=== PATIENT | male | born 1945 | race Caucasian/White ===

== ENCOUNTER 2016-09-22 18:28 | Emergency (ER) | payer MEDICARE, BC ==
[~2016-09-22 18:28] MED LIST: ACIDOPHILU2 PO; APRES25 PO; APRES50 PO; ARANESP60 IV; ARANESP60 SC; ASA5GR PO; ASAB PO; ASCRIPTIN PO; BEN25 PO; BUM2 PO; CALCIUM CARBONATE; CALCIUM MAG ZINC PO; CARDCD120 PO; CAT1 PO; CAT2 PO; CELLCEPT5 PO; CO Q-10100 MG PO; CORDARONE PO; COREG12 PO; COREG3 PO; COREG6 PO; COUMADIN3 MG PO; DUONEB INH; ELIQUIS 5 MG TAB5 MG PO; ENBREL50 MG/M1 SC; HCTZ25B PO; HUMULIN R1 ML SC; HYDROCHLOROT25 MG PO; IMDUR30 PO; IRON325 MG PO; KLONO1 PO; L80 PO; LEVAQUIN750 MG PO; LIPITOR10 PO; LIPITOR20 PO; LIPITOR40 PO; LOTE10 PO; LOTE40 PO; MAGNEBIND300 MG PO; MAGOX4 PO; MARI5 PO; MEDROLPAK4 PO; MELATONIN5 M1 PO; NORCO1 TA1 PO; NXL3 PO; P20 PO; P5 PO; PACERONE100 MG PO; PRIN2.5 PO; PRIN20 PO; PROGRAF5 PO; PROTONIX PO; SYMBICORT 160/41 INH INH; TOPXL25 PO; TYLENOL 8 HR650 MG PO; ULORIC40 MG PO; ULTRAM50 PO; VALTREX1 GM PO; VITC500 PO; Z5 PO; ZETIA PO; ZOVIRAX400 MG PO; [UNRECOGNIZED DRUG - OTHER]
[2016-09-22 19:51] LABS: BASOPHILS 0.2 %; BASOPHILS ABSOLUTE 0.02 10/3/uL (0.0-0.16); EOSINOPHILS 1.1 %; EOSINOPHILS ABSOLUTE 0.12 10/3/uL (0.0-0.53); ER CBC TAT 0 Hrs 03 Mins; HEMATOCRIT 40.9 % (40.0-51.0); HEMOGLOBIN 13.4 g/dL (13.6-17.8); IMMATURE GRANULOCYTES 0.3 %; IMMATURE GRANULOCYTES ABSOLUTE 0.03 10/3/uL (0.0-0.11); LYMPHOCYTES 6.7 %; LYMPHOCYTES ABSOLUTE 0.74 10/3/uL (0.67-4.30); MEAN CORPUSCULAR HEMOGLOB 29.8 pg (26.0-34.0); MONOCYTES 11.3 %; MONOCYTES ABSOLUTE 1.24 10/3/uL (0.21-1.20); NEUTROPHILS 80.4 %; NEUTROPHILS ABSOLUTE 8.85 10/3/uL (2.02-8.40); PLATELET COUNT 243 10/3/uL (150-400); RBC DISTRIBUTION WIDTH 14.8 % (12.0-16.0); RED CELL COUNT 4.49 10/6/uL (4.7-6.1)
[2016-09-22 19:52] LABS: MANUAL DIFF NO %; MEAN CORPUS HGB CONC 32.8 g/dL (32.0-36.0); MEAN CORPUSCULAR VOLUME 91.1 fL (80-100)
[2016-09-22 19:59] LABS: INTERNATIONAL NORMAL RATI 1.4 UNITS (-); PARTIAL THROMBO TIME 26.3 SEC (22.5-37.2)
[2016-09-22 20:01] LABS: PROTIME (NOT ORD) 17.1 SEC (12.0-14.5)
[2016-09-22 20:02] LABS: INFLUENZA A SCREEN NEGATIVE (NEGATIVE); INFLUENZA B SCREEN NEGATIVE (NEGATIVE)
[2016-09-22 20:08] LABS: ALBUMIN 3.5 G/DL (3.5-5.0); CHLORIDE, SERUM 107 MMOL/L (96-112); CO2 (CARBON DIOXIDE) 23 MMOL/L (24-34); CREATININE 1.76 MG/DL (0.70-1.30); GFR AFRICAN AMERICAN 44 ML/MIN (>=60); GFR NON AFRICAN AMERICAN 38 ML/MIN (>=60); POTASSIUM, SERUM 5.7 MMOL/L (3.5-5.3); SGPT(ALT) 23 U/L (5-65); SODIUM, SERUM 140 MMOL/L (135-148); TOTAL PROTEIN 6.8 G/DL (6.0-8.5)
[2016-09-22 20:09] LABS: BUN (BLOOD UREA NITROGEN) 32 MG/DL (6-23); GLUCOSE, SERUM 169 MG/DL (60-99)
[2016-09-22 20:10] LABS: ACETAMINOPHEN LEVEL (TYLENOL) < 2.0 MCG/ML (10.0-20.0); ALCOHOL < 10 MG/DL (0); ALKALINE PHOSPHATASE 99 U/L (45-117); CHEST PAIN PROFILE TAT 0 Hrs 22 Mins; DIRECT BILIRUBIN 0.5 MG/DL (0.0-0.4); SALICYLATE < 1.7 MG/DL (-); SGOT(AST) 17 U/L (5-40); TOTAL BILIRUBIN 1.5 MG/DL (0-1.2); TROPONIN I 0.05 NG/ML (<0.05)
[2016-09-22] MEDS ORDERED: OXYCON10 PO (20:14)
[2016-09-22] MEDS ORDERED: ASAB PO (20:15)
[2016-09-22] MEDS ORDERED: OXYCOD PO (20:15)
[2016-09-22] MEDS ORDERED: LIPITOR10 PO (20:16)
[2016-09-22] MEDS ORDERED: TUMSROLL PO (20:17)
[2016-09-22] MEDS ORDERED: NEUR300 PO ×2 (20:21)
[2016-09-22] MEDS ORDERED: HUMALOG SC (20:22)
[2016-09-22] MEDS ORDERED: VITAMIN D2000 UNIT PO (20:22)
[2016-09-22] MEDS ORDERED: ZESTRIL20 MG PO (20:22)
[2016-09-22] MEDS ORDERED: MAGOX4 PO (20:22)
[2016-09-22] MEDS ORDERED: TOPXL25 PO (20:23)
[2016-09-22] MEDS ORDERED: PROTONIX PO (20:23)
[2016-09-22] MEDS ORDERED: CELLCEPT5 PO (20:23)
[2016-09-22] MEDS ORDERED: CENTRUM PO (20:23)
[2016-09-22] MEDS ORDERED: P5 PO (20:24)
[2016-09-22] MEDS ORDERED: CO Q-10100 MG PO (20:24)
[2016-09-22] MEDS ORDERED: PROGRAF1 PO (20:24)
[2016-09-22] MEDS ORDERED: ZOVIRAX400 MG PO (20:24)
[2016-09-22] MEDS ORDERED: CALTRAT600 PO (20:40)
[2016-09-22] MEDS ORDERED: CLARIT10 PO (20:41)
[2016-09-22 20:49] LABS: PROCALCITONIN 0.06 ng/mL (<0.5)
[2016-09-22 21:03] LABS: ASCORBIC ACID (UR NOT ORDER) NEG (NEG); BILIRUBIN, URINE NEGATIVE (NEG); ER URINALYSIS TAT 0 Hrs 00 Mins; KETONE, URINE NEGATIVE (NEG); LEUKOCYTE ESTERASE(NOT OR NEG (NEG); NITRITE (URINE) NEG (NEG); WBC (NOT ORDERED) (RFLEX) 10 (0-5)
[2016-12-10] MEDS ORDERED: PROTONIX PO (11:28)
[2016-12-10] MEDS ORDERED: DEMA20 PO (11:29)
[2016-12-10] MEDS ORDERED: HYDROCHLOROT25 MG PO (11:29)
[2016-12-10] MEDS ORDERED: TAPAZOLE10 MG PO (11:34)
[2016-12-10] MEDS ORDERED: METANX PO (11:35)
[2016-12-10] MEDS ORDERED: TRESIBA FL100 UNIT/1 IM (12:22)
[2016-12-10] MEDS ORDERED: TESTOST CYP100 MG/ML IM (12:24)
[2016-12-10] MEDS ORDERED: NOVOLOG SC (12:25)
== END 2016-09-22 23:41 | disposition short-term general hospital (02) ==
LOC: ER 18:28
PROVIDERS: Emergency Medicine
DX: G93.40 Encephalopathy, unspecified (principal); E87.5 Hyperkalemia; J18.9 Pneumonia, unspecified organism; I12.9 Hypertensive chronic kidney disease with stage 1 through stage 4 chronic kidney disease, or unspecified chronic kidney disease; N18.9 Chronic kidney disease, unspecified; E11.22 Type 2 diabetes mellitus with diabetic chronic kidney disease; I48.91 Unspecified atrial fibrillation; K21.9 Gastro-esophageal reflux disease without esophagitis; Z95.1 Presence of aortocoronary bypass graft; Z86.19 Personal history of other infectious and parasitic diseases; Z88.8 Allergy status to other drugs, medicaments and biological substances; Z79.82 Long term (current) use of aspirin; Z79.899 Other long term (current) drug therapy; Z79.4 Long term (current) use of insulin
CPT/HCPCS: 70450; 71010; 80048; 80076; 80307; 81001; 82140; 82962; 83605; 83690; 83735; 84145; 84484; 85025; 85610; 85730; 87040; 87804; 93005; 96374; 96375; 99285; A9270-GY; J1956

== ENCOUNTER 2016-09-28 13:00 | Emergency (ER) | payer MEDICARE, BC ==
--- NOTE | ~2016-09-28 | HP ---
History And Physical [facility] [address] [place]. [address] NAME: SANCHEZ ANTONY : 43 STATUS : ADM IN PAT#: [id number] AGE: 70 ADM/REG DATE : 09/28/16 MR#: [id number] REPORT SERV DATE: 09/29/16 DICTATED BY: SANDRA BALDWIN DATE: 09/28/16 REPORT STATUS : Draft TRANSCRIBED BY: MODL DATE: 09/28/16 DATE OF ADMISSION: 09/28/2016 REASON FOR ADMISSION: Encephalopathy gradually progressive over time with failure in workup at [place]. 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 He has actually been fairly progressive since his CABG in 2015. He was unable to identify his son-in-law, then he was telling his 's name and daughter's name, so he was brought to the emergency room for evaluation and treatment. His son-in-law is an emergency room physician at [facility] Dr. Sanchez Pope and he is well known to the Nephrology Service. I discussed his case with Dr. Shaquille Henning. The history is that he was doing well and had an orthopedic injury while out hunting about two years ago. He began taking ibuprofen and was doing fairly well, went to Dr. Brad Aragon his primary care doctor who found his creatinine was slightly elevated. A renal biopsy was done with some postoperative bleeding followed by obstructive uropathy from a clot in the collecting system, followed by atrial fibrillation, followed by discovery of cardiovascular disease, followed by a long complicated CABG with donor vessels from the left wrist and four vessels having been bypassed with a difficult recovery. 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 PAST MEDICAL HISTORY: Renal transplantation with donor from his from failure of the kidneys because of the kappa restriction IgG gammopathy. The present donor kidney has been biopsied showing further infiltration and progression of the disease in the transplanted organ. He has had increasing encephalopathy over the last couple of weeks and suspicion of transplant rejection or progressive loss of kidney due to the infiltration. He has been given Velcade by Dr. Chaparro Fields. Because of his encephalopathy a lumbar puncture was ordered. Consultation has been ordered prior to my request for admission with Neurology, Nephrology, and Oncology. Dr. Henning now recommends consultation with Infectious Disease because of potential for STUDENT ADVISOR infection on the immune suppressed agents. PAST MEDICAL HISTORY: As outlined above. HOME MEDICATIONS: Include the following: Prograf 5 mg p.o. every 12 hours, dexamethasone 40 mg with Velcade once a week, gabapentin 300 mg 2 p.o. three times a day for neuropathic pain, lisinopril 20 mg p.o. daily, loratadine 10 mg p.o. daily, pantoprazole 40 mg p.o. daily, CoQ10 one p.o. daily, aspirin 81 mg p.o. daily, atorvastatin 10 mg p.o. daily, Keflex 1 cap every 12 hours for 7 days, vitamin D3, 1000 units p.o. b.i.d., magnesium oxide 400 mg History And Physical [address] [address] NAME: SANCHEZ ANTONY : 43 STATUS : ADM IN PAT#: [id number] AGE: 70 ADM/REG DATE : 09/28/16 MR#: [id number] REPORT SERV DATE: 09/29/16 DICTATED BY: SANDRA BALDWIN DATE: 09/28/16 REPORT STATUS : Draft TRANSCRIBED BY: TORIN DATE: 09/28/16 once daily, Megace 40 mg/mL 10 mL p.o. once daily, metoprolol 25 mg 1/2 p.o. daily, multivitamin 1 a day, mycophenolate 1 p.o. b.i.d., OxyContin 10 mg p.o. every 12 hours, prednisone 5 mg p.o. daily, and I believe those are the list of his medication. 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 He does not smoke or drink. Lives in [place]. Keshia is the stepmother of his children. FAMILY HISTORY: Unobtainable from him as he cannot recall. Family history from the old chart, Sjogren's syndrome, rheumatoid arthritis. No history of cancer. Positive history of coronary artery disease and diabetes. REVIEW OF SYSTEMS: He has no pain anywhere though his says he usually has neuropathic pain in his hands and legs and feet. He has had no fever, chills, or night sweats. No stiff neck. No nausea, vomiting, or diarrhea. No fits, seizures, or convulsions. No unilateral weakness. No worse than usual with anything. The remainder of the review of systems is negative. PHYSICAL EXAMINATION: VITAL SIGNS: His blood pressure 176/99 down to 140/70 with a heart rate of 80, respiratory rate 18, oxygen saturation 99%, afebrile. HEENT: EOMI. Sclerae clear. Conjunctivae pink. NECK: Marked jugular venous distention. CHEST: Clear. HEART: Regular S1, S2 without murmur, gallop, or click. AICD left upper chest. ABDOMEN: Soft, nontender. Bowel sounds positive. EXTREMITIES: Have no edema. Distal pulses are intact with dorsalis pedis, posterior tibial. NEURO: He is alert, not completely oriented to date, time, and situation but his insulation packer is equal symmetric. Coordination is intact. He is very affable and answers in a courteous congenial way. SKIN: Without rash, ecchymosis, or bruising. Slightly rubor generally. LABORATORY DATA: Lumbar puncture is being performed imminently. The procalcitonin less than 0.05. Sodium 142, potassium 5.3, creatinine 1.83, BUN 42, glucose was 196, albumin 3.4. TSH 0.006, free T4 is 3.[address] scan of the brain showed no acute intracranial abnormality. He does have atrophy and chronic deep white matter abnormality. The ammonia level is slightly elevated at 42. CBC showed hemoglobin of 12.3, hematocrit 37.7, white count 11.5, platelet count 238,000. INR 1.4, lactate 1.1, arterial blood gas 7.46, 30, and 84. Blood cultures that were obtained previously have no growth from the . Chest x-ray portable showed some pleural fluid and atelectasis of the right base but the upper lungs were clear bilaterally. Previous blood sugar was 103. ASSESSMENT: 1. Encephalopathy slowly but chronically progressive. 2. Status post renal transplantation now with a failing transplant from infiltrative disease. History And Physical [address] [place]. [address] NAME: SANCHEZ ANTONY : 43 STATUS : ADM IN PAT#: [id number] AGE: 70 ADM/REG DATE : 09/28/16 MR#: [id number] REPORT SERV DATE: 09/29/16 DICTATED BY: SANDRA BALDWIN DATE: 09/28/16 REPORT STATUS : Draft TRANSCRIBED BY: MODL DATE: 09/28/16 3. 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 Fields. 4. 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 5. History of atrial fibrillation. 6. Automatic implantable cardioverter-defibrillator. 7. History of tricuspid regurgitation. 8. 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 PLAN: Lumbar puncture is being done now. We will get multiple consultations after discussion with Dr. Pope and Dr. Henning. In addition to Nephrology, we will get Neurology and Oncology both of which had been called earlier and we will ask Infectious Disease to see per Dr. Henning's request. The patient is being admitted by the Hospitalist for staging for his especially consultation. JORGE/TORIN Sandra Baldwin M.D. / [id number] CC: Dagmar Carreno M.D. Michael Stipanov, M.D. Mark [place], M.D. Chun C. Huang, MD Mandeep Grewal, M.D.
--- NOTE | ~2016-09-28 | CN ---
Consultation Report [facility] [address] [place]. [address] NAME: SANCHEZ ANTONY : 43 STATUS : DIS IN PAT#: [id number] AGE: 70 ADM/REG DATE : 09/28/16 MR#: [id number] REPORT SERV DATE: 09/30/16 DICTATED BY: MANDI ROMAN DATE: 09/30/16 REPORT STATUS : Draft TRANSCRIBED BY: MODL DATE: 09/30/16 NEUROLOGICAL EVALUATION-CONSULTATION DATE OF CONSULTATION: 09/29/2016 REASON FOR NEUROLOGICAL CONSULTATION: Worsening encephalopathy. HISTORY OF PRESENT ILLNESS: The patient's history was obtained from the patient, the patient's and from other sources which included the patient's chart and additional history is obtained from patient's son-in-law, Dr. Pope the emergency room physician in our [facility] Room. 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 As per patient's , the confusion was noted in the last 3-4 weeks when she noted that the patient was intermittently confused and was making wrong decisions. Past medical history with significant history of coronary artery disease status post CABG followed with complicated recovery. The patient had recurrent atrial fibrillation which was discovered during his surgery for renal biopsy. Also memory difficulty was observed following his CABG which was done in 2015. In the past 2-3 weeks, the patient had difficulty remembering names of his grandchildren. The patient's who is a nurse described that the patient would continue asking her the same questions, and she observed him having difficulty remembering the names of his children. PAST MEDICAL HISTORY: Significant history as mentioned above, coronary artery disease status post CABG, history of recurrent atrial fibrillation, history of renal transplant currently on anti-rejection medications. The patient was diagnosed with rare cancer light chain kappa, IgG gammopathy and lymphoma. The present donor kidney has been biopsied and shows further infiltration progression of the disease in the transplanted organ. The patient had been followed by physicians at [facility] for his condition related to the kidney transplant. HOME MEDICATIONS: The patient's home medications included Prograf 5 mg p.o. q.12 hours, dexamethasone 5 mg p.o. daily, Velcade once a week, gabapentin 300 mg two tablets p.o. 3 times a day for neuropathic pain, lisinopril 20 mg p.o. daily, loratadine 10 mg p.o. daily, pantoprazole 40 mg p.o. daily, aspirin 81 mg p.o. daily, atorvastatin 10 mg daily, Keflex one cap every 12 hours for seven days and vitamin D and magnesium supplement, Megace 40 mg per mL 10 mL once daily, metoprolol 25 mg half a tablet daily, CellCept one tablet p.o. b.i.d., OxyContin 10 mg every 12 hours, prednisone, and additional p.r.n. oxycodone 5 mg/325 mg on p.r.n. basis. SOCIAL HISTORY: There is no history of smoking or alcohol use. 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 The patient's donated her kidney to the patient. Consultation Report [place] [id number] [facility] [place]. [address] NAME: SANCHEZ ANTONY : 43 STATUS : DIS IN PAT#: [id number] AGE: 70 ADM/REG DATE : 09/28/16 MR#: [id number] REPORT SERV DATE: 09/30/16 DICTATED BY: MANDI ROMAN DATE: 09/30/16 REPORT STATUS : Draft TRANSCRIBED BY: TORIN DATE: 09/30/16 FAMILY HISTORY: Significant for rheumatoid arthritis and Sjogren syndrome. No history of cancer. There is history of diabetes and heart disease. REVIEW OF SYSTEMS: The patient had significant neuropathic pain when he started taking medication which was sent to his house by [facility]. At that time, the patient required large doses of narcotic medications. There is no difficulty with vision, chewing, swallowing, with speech. The patient denied fever, chills, nausea, or vomiting. Denied having stiffness in his neck. Denied weakness involving his face or extremities. The patient was hospitalized at [facility] couple of weeks ago where a complete neurological examination was performed by resident. At that time, the patient was not referred for any imaging study or lumbar puncture. PHYSICAL EXAMINATION: VITAL SIGNS: Blood pressure 172/94, pulse was 84, respirations 16, temperature is 97.5. HEAD AND NECK EXAMINATION: Showed him to be normocephalic. There was no evidence of trauma. Auscultation of the head and neck showed no evidence of bruits. EYE EXAM: Sclerae were nonicteric. Conjunctivae were pink. ENT: Unremarkable except for small airway Mallampati class 3-4. Tongue was midline. No crowding, glossitis, or other abnormalities were noted on inspection of the tongue. NECK: Supple. There is no Kernig or Brudzinski. Cervical range of motion was not impaired. There is no JVD, no thyromegaly. No carotid bruits are noted to auscultation. CHEST: Symmetrical. LUNGS: Clear. HEART: Auscultation of heart regular S1, S2. No S3, S4, gallops were noted. ABDOMEN: Soft, nontender. EXTREMITIES: Showed no clubbing or cyanosis. There is no peripheral edema. Peripheral pulses were intact throughout and within normal range. SKIN: Clear. No petechiae, ecchymosis, discoloration of pigmented lesions noted. NEUROLOGICAL EXAMINATION: Mental Status Exam: The patient was alert, oriented to self, place, partially oriented to time, stated it was September 2016, with delay was able to remember the date. His speech was fluent. There was no evidence of aphasia or dysarthria. The patient distant recent memory testing showed him to have global signs of cognitive changes suggestive of very mild dementia. The patient appeared to have good insight into the fact that he was having memory difficulty lately. Cranial nerve examination 2 through 12: Visual lipscomb on confrontation were intact. Funduscopic exam show pallor of the optic discs. No papilledema, hemorrhages, or exudates were noted. Venous pulsation was preserved. Extraocular movements were full. There was no nystagmus, no limitation of upward gaze was present. No facial asymmetry was noted. Hearing was intact bilaterally although decreased slightly. Lower cranial nerves are intact. Tongue was midline. No atrophy or fibrillations were noted. Palate elevated symmetrically. Sternocleidomastoid and trapezius muscles were normal. Cerebellar exam with [id number] was intact. The gait was cautious but within normal range. Sensory exam showed decreased sensation distally to pinprick, light touch, and vibration. Position sense was mildly impaired. The patient did look down towards his feet while ambulating, however, had no difficulty including had no loss of balance while turning. Consultation Report [place] [address] [facility] [address] NAME: SANCHEZ ANTONY : 43 STATUS : DIS IN PAT#: [id number] AGE: 70 ADM/REG DATE : 09/28/16 MR#: [id number] REPORT SERV DATE: 09/30/16 DICTATED BY: MANDI ROMAN DATE: 09/30/16 REPORT STATUS : Draft TRANSCRIBED BY: TORIN DATE: 09/30/16 LABORATORY STUDIES: Sodium 138, potassium 4.4, chloride 106, carbon dioxide 23, BUN 41, creatinine 1.72, glomerular filtration rate 39. Serum glucose 135, calcium 9.1, magnesium 2.2. Total protein 6.4, albumin 3.4, ammonia 42. TSH is 0.006. Free T4 3.30 elevated. ABG is pH 7.46, pCO2 of 38, pO2 of 84, base excess -2.2, bicarbonate 20.5, oxygen saturation 96.2, WBC count on CBC 11.4, hemoglobin 13.1, hematocrit 39.4, MCV 87.6, neutrophils absolute 8.72, lymphocytes absolute 1.14, monocytes absolute 1.33, eosinophil absolute 0.7, procalcitonin at admission was low at 0.05. Lumbar puncture results showed 1 WBC, CSF glucose 98, total protein CSF of 48.4, 0 RBCs. Fluid was colorless, clear, no xanthochromia noted. IMPRESSION AND RECOMMENDATIONS: 1. Progressive ? encephalopathy probably multifactorial, however, in view of patient's underlying history and history of light chain kappa lymphoma, we need to rule out EDI CONSULTANT involvement lymphoma or other pathology including opportunistic infection, autoimmune encephalitis, or paraneoplastic encephalitis. 2. Status post renal transplant with raising BUN and creatinine. Rule out slowly progressing rejection process. 3. History of CABG, atrial fibrillation, mild cognitive decline noted after CABG surgery. Rule out multi-infarct state and mild dementia-vascular dementia. 4. Increased risk of stroke. These include risk factors of atrial fibrillation, hypertension, diabetes mellitus, obstructive sleep apnea, cancer and possible hypercoagulable state. 5. Obstructive sleep apnea. Now, the patient is on narcotic medications to control his neuropathic pain. Unfortunately, narcotics can add to the patient's apnea by producing central apnea. CPAP may not be effective. The patient may need actually to have BiPAP and be titrated for BiPAP of Servo ventilation if he has significant central apnea. 6. Disturbed sleep secondary to frequent arousals from untreated obstructive sleep apnea and perhaps additional factor of hyperthyroidism-overactive thyroid contributes to disturbed sleep. The patient is with chronically disturbed sleep, has increase of cognitive problems and memory problems. Hypersomnolence during the day. I recommend adding autoimmune encephalitis panel and protein electrophoresis to CSF. The lumbar puncture was done last night, was negative for infection, however, the protein was slightly higher than normal. 7. I recommend to obtain MRI of the brain with no contrast secondary to renal transplant. Telemetry monitoring for recurrent atrial fibrillation. Recommend to gradually decrease pain medications OxyContin etc. and decrease Neurontin, use it only at bedtime, and for severe pain. Tests for autoimmune thyroiditis. At this time, TSH is low and T4 elevated. Start Exelon patch and Namenda if all above addressed, and no cause is found. Follow with all providers and also recommend to follow up with outpatient neurology. Thank you for allowing me to participate in this patient's care. Consultation Report [place] [address] [place]. [address] NAME: SANCHEZ ANTONY : 43 STATUS : DIS IN PAT#: [id number] AGE: 70 ADM/REG DATE : 09/28/16 MR#: [id number] REPORT SERV DATE: 09/30/16 DICTATED BY: MANDI ROMAN DATE: 09/30/16 REPORT STATUS : Draft TRANSCRIBED BY: TORIN DATE: 09/30/16 ANGIE/TORIN Mandi Roman MD / [id number] CC: MD Manpreet Curiel M.D.
--- NOTE | ~2016-09-28 | DS ---
Discharge Summary [facility] [address] [place]. 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 He is status post kidney transplant, also hypertension, who was brought to the emergency room by his with a complaint of gradually progressive encephalopathy. For further details, please refer to the excellent H and P dictated by Dr. Chet Duenas on 09/29/2016. Upon presentation to the hospital, the patient was admitted under Hospitalist Service. The patient is well known to the Nephrology Service with Dr. Henning being his media theorist and author of. At the time of presentation, the patient also has a history of kappa light chain lymphoma, so thought was that his progressive encephalopathy might be secondary to a complication of that disease versus an infectious etiology in the setting of recent kidney transplant. The patient was admitted to the hospital. Nephrology was consulted. Infectious Disease was consulted and also Neurology was consulted. For further details, please refer to note dictated by those services. During his hospitalization to evaluate MRI of the brain and MRA of the neck were ordered as well as infectious workup was also performed by Infectious Disease. His infectious workup came back negative, prompting infectious disease to sign off the case. His MRI also came back with no acute abnormality noted, also prompting Neurology to sign off the case. The patient has remained stable. However, his mentation has been waxing and waning concerning for a delirium type picture. Also, at the time of presentation, the patient was on high dose of pain medication, so the thought process it will be medication related. His long-acting opioid medication was discontinued, and the patient was placed on p.r.n. pain medications. Over his hospital course, his mentation has slightly improved. reports that he is still fluctuating in and out. Given completion of workup, the patient has been cleared by all three services; Nephrology, Neurology, and the Infectious Disease, for discharge. The patient is scheduled to see his primary care physician this coming Saturday. He is also scheduled for a followup visit with his Transplant Nephrology at [facility] on the 10/10/2016. Give completion of workup and given that the patient has a close followup scheduled, the patient will be discharged home today. Plan has been discussed with the patient and family who voiced understanding and are agreeable with this plan. DISCHARGE DIAGNOSES: 1. Altered mental status. 2. ESRD, status post kidney transplant. 3. Lymphoma of kappa light chain. 4. Rapidly progressive glomerulonephritis. 5. Hypertension. DISCHARGE MEDICATIONS: 1. Acyclovir 400 mg p.o. daily. 2. Aspirin 81 mg p.o. daily. 3. Atorvastatin 10 mg p.o. at bedtime. Discharge Summary [address] [address] NAME: SANCHEZ ANTONY : 43 STATUS : DIS IN PAT#: [id number] AGE: 70 ADM/REG DATE : 09/28/16 MR#: [id number] REPORT SERV DATE: 10/01/16 DICTATED BY: MARGARET FOSTER DATE: 09/30/16 REPORT STATUS : Draft TRANSCRIBED BY: TORIN DATE: 09/30/16 4. Calcium carbonate 500 mg p.o. daily. 5. Keflex 500 mg p.o. q.12 hours for seven days. 6. Vitamin D 1000 units p.o. twice a day. 7. Magnesium oxide 400 mg p.o. daily. 8. Vol-Tab multivitamin. 9. CellCept 500 mg p.o. twice a day. 10.Megace 10 mg p.o. daily. 11.Metoprolol 50 mg p.o. b.i.d. 12.Tacrolimus 7 mg p.o. twice a day. 13.Prednisone 5 mg p.o. daily. 14.Furosemide 40 mg p.o. daily. IMAGIN. Brain CT without contrast. Impression: No acute intracranial abnormality noted. 2. Atrophy chronic microvascular white matter ischemic changes. 3. MRI/MRA head and neck without contrast. Impression: No acute abnormality seen on MRI brain scan. No abnormalities seen on MRA scans of the neck. No abnormality seen on MRA scans of the head. DISPOSITION: The patient will be discharged to home under the care of his . ACTIVITY: As tolerated. DIET: Regular diet. Greater than 30 minutes was spent providing counseling, medication reconciliation, medication review, providing counseling, dictation of note, and coordinating discharge. ERNESTO/TORIN Margaret Foster MD / [id number] CC: MD Manpreet Curiel M.D.
[~2016-09-28 13:00] MED LIST changes: +CALTRAT600 PO; +CENTRUM PO; +CLARIT10 PO; +HUMALOG SC; +NEUR300 PO; +OXYCOD PO; +OXYCON10 PO; +PROGRAF1 PO; +TUMSROLL PO; +VITAMIN D2000 UNIT PO; +ZESTRIL20 MG PO
[2016-09-28 13:44] LABS: BE (BASE EXCESS) -2.2 MEQ/L (0 +/- 2.5); CARBOXYHEMOGLOBIN 1.3 % (0-3); HCO3 (ACTUAL BICARBONATE) 20.5 MEQ/L (23-27); INSTRUMENT SERIAL # 8087; METHEMOGLOBIN 0.2 % (0-3); O2 CONTENT 17.4 VOL% (18-24); PCO2 (CO2 TENSION) 30 MMHG (35-45); PO2 (O2 TENSION) 84 MMHG (79-93); SAMPLE Arterial; pH 7.46 (7.37-7.43)
[2016-09-28] MEDS ORDERED: PCET PO (14:13)
[2016-09-28] MEDS ORDERED: ASAB PO (14:14)
[2016-09-28] MEDS ORDERED: ZOVIRAX400 MG PO (14:14)
[2016-09-28] MEDS ORDERED: LIPITOR10 PO (14:14)
[2016-09-28] MEDS ORDERED: CALCIUM OTC PO (14:19)
[2016-09-28] MEDS ORDERED: VITAMIN D2000 UNIT PO (14:20)
[2016-09-28] MEDS ORDERED: K500 PO (14:20)
[2016-09-28] MEDS ORDERED: L40 PO (14:20)
[2016-09-28] MEDS ORDERED: MAGOX4 PO (14:21)
[2016-09-28] MEDS ORDERED: MEGACEUDL PO (14:21)
[2016-09-28] MEDS ORDERED: LOP25 PO (14:22)
[2016-09-28] MEDS ORDERED: MULTIVITAMI1 PO ×2 (14:22→14:28)
[2016-09-28] MEDS ORDERED: CELLCEPT5 PO (14:22)
[2016-09-28] MEDS ORDERED: OXYCON10 PO (14:23)
[2016-09-28] MEDS ORDERED: P5 PO (14:23)
[2016-09-28] MEDS ORDERED: PROGRAF1 PO (14:23)
[2016-09-28 14:25] LABS: BASOPHILS 0.3 %; BASOPHILS ABSOLUTE 0.04 10/3/uL (0.0-0.16); EOSINOPHILS 0.2 %; EOSINOPHILS ABSOLUTE 0.02 10/3/uL (0.0-0.53); HEMATOCRIT 37.7 % (40.0-51.0); HEMOGLOBIN 12.3 g/dL (13.6-17.8); IMMATURE GRANULOCYTES 0.4 %; IMMATURE GRANULOCYTES ABSOLUTE 0.05 10/3/uL (0.0-0.11); LYMPHOCYTES 7.6 %; LYMPHOCYTES ABSOLUTE 0.87 10/3/uL (0.67-4.30); MEAN CORPUS HGB CONC 32.6 g/dL (32.0-36.0); MEAN CORPUSCULAR HEMOGLOB 28.7 pg (26.0-34.0); MEAN PLATELET VOLUME 12.4 fL (9.2-13.0); MONOCYTES ABSOLUTE 0.92 10/3/uL (0.21-1.20); NEUTROPHILS 83.5 %; NEUTROPHILS ABSOLUTE 9.56 10/3/uL (2.02-8.40); PLATELET COUNT 238 10/3/uL (150-400); RED CELL COUNT 4.29 10/6/uL (4.7-6.1); WHITE BLOOD CELLS 11.5 10/3/uL (4.5-10.5)
[2016-09-28 14:26] LABS: MANUAL DIFF NO %; MEAN CORPUSCULAR VOLUME 87.9 fL (80-100)
[2016-09-28 14:35] LABS: INTERNATIONAL NORMAL RATI 1.4 UNITS (-); LACTATE 1.1 MMOL/L (0.3-2.4); PARTIAL THROMBO TIME 25.4 SEC (22.5-37.2); PROTIME (NOT ORD) 17.2 SEC (12.0-14.5)
[2016-09-28 14:47] LABS: A/G RATIO 1.1 (0.7-1.9); ALBUMIN 3.4 G/DL (3.5-5.0); ALKALINE PHOSPHATASE 89 U/L (45-117); CALCIUM, SERUM 9.2 MG/DL (8.5-10.4); CHLORIDE, SERUM 109 MMOL/L (96-112); CO2 (CARBON DIOXIDE) 22 MMOL/L (24-34); CREATININE 1.83 MG/DL (0.70-1.30); GFR AFRICAN AMERICAN 42 ML/MIN (>=60); GFR NON AFRICAN AMERICAN 36 ML/MIN (>=60); GLUCOSE, SERUM 196 MG/DL (60-99); POTASSIUM, SERUM 5.3 MMOL/L (3.5-5.3); SGOT(AST) 23 U/L (5-40); SGPT(ALT) 28 U/L (5-65); SODIUM, SERUM 142 MMOL/L (135-148); T3 UPTAKE 43 % (30-45); TOTAL PROTEIN 6.4 G/DL (6.0-8.5); ULTRASENSITIVE TSH 0.006 MCIU/ML (0.358-3.740)
[2016-09-28 14:52] LABS: BUN (BLOOD UREA NITROGEN) 42 MG/DL (6-23)
[2016-09-28 15:20] LABS: PROCALCITONIN <0.05 ng/mL (<0.5)
[2016-09-28 17:11] LABS: GLUCOSE CSF 98 MG/DL (45-70); TOTAL PROTEIN, CSF 48.4 MG/DL (15-45)
[2016-09-28 17:45] LABS: CSF APPEARANCE (NOT ORD) CLEAR (CLEAR); CSF BASO 0 % (NO REF RANGE); CSF COLOR (NOT ORD) COLORLESS (COLORLESS); CSF EOS 0 % (0-1); CSF LYMPH (NOT ORD) 47 % (28-96); CSF MONO 53 % (16-56); CSF RBC (NOT ORD) 0 MM3 (NO REFERENCE); CSF SEGS (NOT ORD) 0 % (0-7); CSF WBC (NOT ORD) 2 /uL (0-10); CSF XANTHROCHROMIA NEG (NEG)
[2016-09-28 17:49] LABS: CSF APPEARANCE (NOT ORD) CLEAR (CLEAR); CSF BASO 0 % (NO REF RANGE); CSF COLOR (NOT ORD) COLORLESS (COLORLESS); CSF EOS 0 % (0-1); CSF LYMPH (NOT ORD) 38 % (28-96); CSF MONO 63 % (16-56); CSF RBC (NOT ORD) 0 MM3 (NO REFERENCE); CSF SEGS (NOT ORD) 0 % (0-7); CSF WBC (NOT ORD) 1 /uL (0-10); CSF XANTHROCHROMIA NEG (NEG)
[2016-09-28 18:08] LABS: WBC (NOT ORDERED) (RFLEX) 0 (0-5)
[2016-09-28 18:22] LABS: ASCORBIC ACID (UR NOT ORDER) NEG (NEG); BILIRUBIN, URINE NEGATIVE (NEG); ER URINALYSIS TAT 0 Hrs 16 Mins; KETONE, URINE NEGATIVE (NEG); LEUKOCYTE ESTERASE(NOT OR NEG (NEG); NITRITE (URINE) NEG (NEG)
[2016-09-29 09:07] LABS: BASOPHILS 0.2 %; BASOPHILS ABSOLUTE 0.02 10/3/uL (0.0-0.16); EOSINOPHILS 0.6 %; EOSINOPHILS ABSOLUTE 0.07 10/3/uL (0.0-0.53); HEMATOCRIT 39.4 % (40.0-51.0); HEMOGLOBIN 13.1 g/dL (13.6-17.8); IMMATURE GRANULOCYTES 0.6 %; IMMATURE GRANULOCYTES ABSOLUTE 0.07 10/3/uL (0.0-0.11); LYMPHOCYTES ABSOLUTE 1.14 10/3/uL (0.67-4.30); MEAN CORPUS HGB CONC 33.2 g/dL (32.0-36.0); MEAN CORPUSCULAR HEMOGLOB 29.1 pg (26.0-34.0); MEAN CORPUSCULAR VOLUME 87.6 fL (80-100); MEAN PLATELET VOLUME 12.2 fL (9.2-13.0); MONOCYTES 11.7 %; MONOCYTES ABSOLUTE 1.33 10/3/uL (0.21-1.20); NEUTROPHILS 76.9 %; NEUTROPHILS ABSOLUTE 8.72 10/3/uL (2.02-8.40); PLATELET COUNT 250 10/3/uL (150-400); RBC DISTRIBUTION WIDTH 14.6 % (12.0-16.0); WHITE BLOOD CELLS 11.4 10/3/uL (4.5-10.5)
[2016-09-29 09:08] LABS: MANUAL DIFF NO %
[2016-09-29 09:24] LABS: ALBUMIN 3.4 G/DL (3.5-5.0); BUN (BLOOD UREA NITROGEN) 41 MG/DL (6-23); CALCIUM, SERUM 9.1 MG/DL (8.5-10.4); CHLORIDE, SERUM 106 MMOL/L (96-112); CO2 (CARBON DIOXIDE) 23 MMOL/L (24-34); CREATININE 1.72 MG/DL (0.70-1.30); GFR AFRICAN AMERICAN 45 ML/MIN (>=60); GFR NON AFRICAN AMERICAN 39 ML/MIN (>=60); POTASSIUM, SERUM 4.4 MMOL/L (3.5-5.3); SODIUM, SERUM 138 MMOL/L (135-148)
[2016-09-29 09:25] LABS: GLUCOSE, SERUM 135 MG/DL (60-99); PHOSPHORUS, SERUM 3.5 MG/DL (2.5-4.5)
[2016-09-30 05:21] LABS: BASOPHILS 0.2 %; BASOPHILS ABSOLUTE 0.02 10/3/uL (0.0-0.16); EOSINOPHILS 0.3 %; EOSINOPHILS ABSOLUTE 0.04 10/3/uL (0.0-0.53); HEMATOCRIT 38.2 % (40.0-51.0); HEMOGLOBIN 12.7 g/dL (13.6-17.8); IMMATURE GRANULOCYTES 0.6 %; IMMATURE GRANULOCYTES ABSOLUTE 0.07 10/3/uL (0.0-0.11); LYMPHOCYTES 9.5 %; LYMPHOCYTES ABSOLUTE 1.17 10/3/uL (0.67-4.30); MEAN CORPUS HGB CONC 33.2 g/dL (32.0-36.0); MEAN CORPUSCULAR HEMOGLOB 28.8 pg (26.0-34.0); MEAN CORPUSCULAR VOLUME 86.6 fL (80-100); MONOCYTES 10.6 %; MONOCYTES ABSOLUTE 1.31 10/3/uL (0.21-1.20); NEUTROPHILS 78.8 %; NEUTROPHILS ABSOLUTE 9.75 10/3/uL (2.02-8.40); PLATELET COUNT 233 10/3/uL (150-400); RBC DISTRIBUTION WIDTH 14.7 % (12.0-16.0); RED CELL COUNT 4.41 10/6/uL (4.7-6.1); WHITE BLOOD CELLS 12.4 10/3/uL (4.5-10.5)
[2016-09-30 05:24] LABS: MANUAL DIFF NO %
[2016-09-30 05:30] LABS: INTERNATIONAL NORMAL RATI 1.4 UNITS (-); PROTIME (NOT ORD) 16.9 SEC (12.0-14.5)
[2016-09-30 05:41] LABS: A/G RATIO 1.3 (0.7-1.9); ALBUMIN 3.4 G/DL (3.5-5.0); ALKALINE PHOSPHATASE 90 U/L (45-117); BUN (BLOOD UREA NITROGEN) 39 MG/DL (6-23); CALCIUM, SERUM 8.9 MG/DL (8.5-10.4); CHLORIDE, SERUM 110 MMOL/L (96-112); CO2 (CARBON DIOXIDE) 23 MMOL/L (24-34); CREATININE 1.76 MG/DL (0.70-1.30); DIRECT BILIRUBIN 0.4 MG/DL (0.0-0.4); GFR AFRICAN AMERICAN 44 ML/MIN (>=60); GFR NON AFRICAN AMERICAN 38 ML/MIN (>=60); GLOBULIN 2.7 G/DL (2.5-4.1); GLUCOSE, SERUM 151 MG/DL (60-99); INDIRECT BILIRUBIN(NOT ORDER) 0.6 MG/DL (0.1-0.9); PHOSPHORUS, SERUM 3.6 MG/DL (2.5-4.5); POTASSIUM, SERUM 4.7 MMOL/L (3.5-5.3); SGOT(AST) 19 U/L (5-40); SGPT(ALT) 24 U/L (5-65); SODIUM, SERUM 141 MMOL/L (135-148); TOTAL PROTEIN 6.1 G/DL (6.0-8.5)
[2016-09-30 06:39] LABS: ASCORBIC ACID (UR NOT ORDER) NEG (NEG); BILIRUBIN, URINE NEGATIVE (NEG); KETONE, URINE NEGATIVE (NEG); LEUKOCYTE ESTERASE(NOT OR NEG (NEG); WBC (NOT ORDERED) (RFLEX) 5 (0-5)
[2016-09-30] MEDS ORDERED: ENDOCET1 TA3 PO (16:13)
[2016-09-30] MEDS ORDERED: PCET PO (16:20)
[2016-10-01 14:27] LABS: HSV DNA TYPE 1 Not Detected (NOTDET); HSV DNA TYPE 2 Not Detected (NOTDET)
[2016-10-02 16:49] LABS: VDRL, CSF Non Reactive (NR)
[2016-10-03 19:42] LABS: ALBUMIN 32.7 mg/dL (8.4-34.2); ALPHA 1 2.8 mg/dL (0.0-3.1); ALPHA 2 3.7 mg/dL (0.0-5.4); BETA 4.9 mg/dL (0.0-8.1); GAMMA 2.9 mg/dL (0.0-5.4); PREALBUMIN 1.1 mg/dL (0.0-3.1); PROTEIN, CSF 48.1 mg/dL (15.0-45.0)
[2016-10-04 02:09] LABS: M.TB COMP PCR NON RESP NOT DETECTED (NOTDET)
[2016-12-10] MEDS ORDERED: PROTONIX PO (11:28)
[2016-12-10] MEDS ORDERED: HYDROCHLOROT25 MG PO (11:29)
[2016-12-10] MEDS ORDERED: DEMA20 PO (11:29)
[2016-12-10] MEDS ORDERED: TAPAZOLE10 MG PO (11:34)
[2016-12-10] MEDS ORDERED: METANX PO (11:35)
[2016-12-10] MEDS ORDERED: TRESIBA FL100 UNIT/1 IM (12:22)
[2016-12-10] MEDS ORDERED: TESTOST CYP100 MG/ML IM (12:24)
[2016-12-10] MEDS ORDERED: NOVOLOG SC (12:25)
== END 2016-09-30 17:51 | disposition home or self-care (01) ==
LOC: ER 13:00
PROVIDERS: Hospitalist
DX: G93.40 Encephalopathy, unspecified (principal); E05.90 Thyrotoxicosis, unspecified without thyrotoxic crisis or storm; I12.9 Hypertensive chronic kidney disease with stage 1 through stage 4 chronic kidney disease, or unspecified chronic kidney disease; N18.9 Chronic kidney disease, unspecified; I25.2 Old myocardial infarction; Z95.1 Presence of aortocoronary bypass graft; Z88.8 Allergy status to other drugs, medicaments and biological substances; Z79.82 Long term (current) use of aspirin; Z79.899 Other long term (current) drug therapy
CPT/HCPCS: 36600; 62270; 70450; 70544; 70547; 70551; 77003; 80053; 80069; 81001; 82140; 82248; 82805; 82945; 82962; 83605; 83735; 84145; 84157; 84166; 84439; 84443; 84479; 84999; 85025; 85610; 85730; 86592; 87015; 87040; 87070; 87102; 87116; 87205; 87210; 87327; 87529; 87529-59; 87556; 88112; 89051; 93005; 99285; A9270-GY; J0360; J7507

== ENCOUNTER 2016-10-08 13:02 | Inpatient (IN) | payer MEDICARE, BC ==
--- NOTE | ~2016-10-08 | CN ---
Consultation Report [facility] [address] [place]. [address] NAME: SANCHEZ ANTONY : 43 STATUS : ADM IN PAT#: [id number] AGE: 70 ADM/REG DATE : 10/08/16 MR#: [id number] REPORT SERV DATE: 10/09/16 DICTATED BY: MATTHEW THOMPSON DATE: 10/09/16 REPORT STATUS : Draft TRANSCRIBED BY: MODL DATE: 10/09/16 NEPHROLOGY CONSULTATION DATE OF CONSULTATION: 10/09/2016 INDICATION FOR CONSULTATION: Acute on chronic kidney disease, renal transplant. 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 He has a complicated medical history initially dating back to 2013 with a difficult four-vessel CABG and subsequent need for dialysis postoperatively with recovery of renal function. 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 He progressed onto needing hemodialysis despite chemotherapy intervention. In November of 2015, he received a non-related living donor renal transplant from his . The donor kidney has subsequently been biopsied and found to have recurrent infiltrative disease with kappa light-chain gammopathy. Currently, he was found to have a large right pleural effusion on chest x-ray while in the emergency room. He was noted to have a creatinine of 1.83 on 09/28/2016, which progressed to 2.18 on 10/08/2016. His present creatinine is 2.11 with a potassium of 5.7. He is on chronic immunosuppressants with CellCept, Prograf, and prednisone for his renal transplant. He was taking Lasix on a p.r.n. basis. The patient has been on acyclovir, but no other nephrotoxic agents. He has also been monitored closely for progressive encephalopathy and been seen by Neurology. There was concern about dementia; prior screens have demonstrated no etiology. There is also discussion about having the patient evaluated at [facility] where he received his transplant. PAST MEDICAL HISTORY: 1. 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 2. Recent progressive encephalopathy. 3. History of psoriasis treated with Humira. 4. Chronic systolic congestive heart failure, ejection fraction of 45% in July 2016. 5. Coronary artery disease, status post four-vessel CABG in 2013. 6. History of paroxysmal atrial fibrillation, nonsustained ventricular tachycardia, status post maze and AICD. 7. Obstructive sleep apnea, possible central and obstructive component. 8. [place] light-chain gammopathy followed by Oncology. 9. Hypertension. 10.Hyperthyroidism. 11.History of dermatitis. 12.History of diabetes mellitus, now off insulin. 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 . No use of alcohol, tobacco products, or Consultation Report [address] [place]. [address] NAME: SANCHEZ ANTONY : 43 STATUS : ADM IN [facility]#: [id number] AGE: 70 ADM/REG DATE : 10/08/16 MR#: [id number] REPORT SERV DATE: 10/09/16 DICTATED BY: MATTHEW THOMPSON DATE: 10/09/16 REPORT STATUS : Draft TRANSCRIBED BY: TORIN DATE: 10/09/16 illicit drugs. FAMILY HISTORY: Mother in her 90s of dementia. Father had heart attack and ankylosing spondylitis. Siblings with obesity, diabetes, sleep apnea per chart. REVIEW OF SYSTEMS: Presently, the patient is too confused to obtain system review. Information obtained from daughter and chart. ALLERGIES: CALCIUM CHANNEL BLOCKERS, AMIODARONE, DILAUDID. HOME MEDICATIONS: Acyclovir, aspirin, Lipitor, vitamin D, Lasix, magnesium, Megace, melatonin, metoprolol, multivitamin, CellCept, Percocet, prednisone, Prograf, Halcion, coenzyme Q10. PHYSICAL EXAMINATION: GENERAL: Pleasant male, speech is somewhat unintelligible. VITAL SIGNS: Blood pressure 150/93, temperature 97.1, pulse 85, respiratory rate 20. HEENT: Eyes, no scleral icterus. Pupils equal and reactive to light. Extraocular movement intact. Nares patent. No discharge. Throat, no injection. Mucous membranes moist. NECK: No thyromegaly, masses, bruits. CHEST/LUNGS: Decreased breath sounds right with some crackles most posterior and laterally. CARDIAC: Irregular rhythm 1/6 systolic ejection murmur. No gallop. No rub. ABDOMEN: Supple. Normoactive bowel sounds. No right lower quadrant allograft tenderness from transplant. Questionable ascites. /RECTAL: Not performed. EXTREMITIES: No edema. No calf tenderness. DERMIS: No identifiable rash. No skin lesions. NEUROLOGIC: The patient smiles. Speech is unintelligible. No overt lateralizing weakness. IMPRESSION: 1. Hyperkalemia, likely secondary to progressive kidney disease, possible complicated further by calcineurin inhibitor. 2. Acute on chronic kidney disease, likely progression of underlying disease, possible prerenal state, possible calcineurin toxicity. 3. Non-related living renal donor transplant with recurrence of kappa light-chain infiltrated gammopathy transplant at [facility] in November 2015. 4. Progressive encephalopathy. 5. Right pleural effusion. 6. Psoriasis. 7. Chronic systolic congestive heart failure with ejection fraction of 45% in July 2016. 8. Coronary artery disease with four-vessel CABG in 2013. 9. History of paroxysmal atrial fibrillation, status post maze and subsequent AICD with nonsustained ventricular tachycardia. Consultation Report [place] [address] [place]. [address] NAME: SANCHEZ ANTONY : 43 STATUS : ADM IN [facility]#: [id number] AGE: 70 ADM/REG DATE : 10/08/16 MR#: [id number] REPORT SERV DATE: 10/09/16 DICTATED BY: MATTHEW THOMPSON DATE: 10/09/16 REPORT STATUS : Draft TRANSCRIBED BY: TORIN DATE: 10/09/16 10.Obstructive sleep apnea with possible central and obstructive components. 11.[place] light chain gammopathy. 12.Surgeries including cholecystectomy, AV fistula, appendectomy, right shoulder surgery, resection of melanoma, resection of basal cell carcinoma. PLAN: 1. Lab. 2. P.o. bicarb. 3. Trial of diuretics. 4. Potassium restricted diet. 5. Possible Florinef. We will avoid Kayexalate due to the possibility of inducing ischemic colitis in renal transplant patients. CG/MODL Matthew Thompson M.D. / [id number] CC: Dagmar Damon M.D.
--- NOTE | ~2016-10-08 | IDS ---
Interim Discharge Summary [facility] [address] [place]. [address] NAME: SANCHEZ ANTONY : 43 STATUS : ADM IN PAT#: [id number] AGE: 70 ADM/REG DATE : 10/08/16 MR#: [id number] REPORT SERV DATE: 10/15/16 DICTATED BY: ENMA MONTGOMERY DATE: 10/15/16 REPORT STATUS : Draft TRANSCRIBED BY: MODL DATE: 10/15/16 ADMISSION DATE: 10/08/2016 DISCHARGE DATE: PRINCIPAL DIAGNOSIS: Acute respiratory failure due to acute on chronic systolic congestive heart failure and pleural effusions. SECONDARY DIAGNOSES: Encephalopathy due to Prograf toxicity; sleep apnea; immune compromise with kidney transplant, status post recurrent acute kidney injury; history of lymphoma; history nonsustained ventricular tachyarrhythmia; steroid-induced diabetes. HISTORY OF PRESENT ILLNESS: Please see Dr. Murray's dictation on 10/08. HOSPITAL COURSE: The patient was admitted with acute shortness of breath in the setting of recent treatment for kappa light chain gammopathy, which is being treated as if it were a lymphoma with Velcade. He starting also having an acute kidney injury and acute hypoxemia with a large pleural effusion. He underwent a thoracentesis. Meanwhile, his mental status which had been worrisome before continued to deteriorate. There was concern that the chemotherapy had interacted with his Prograf and resulted in neuro toxicity. He was seen by Oncology, Renal, and Neurology regarding this issue. The patient had Prograf levels that tend to be sent, however, they would not do things here, and ultimately, it was not sent correctly. He did, however, have a thoracentesis and optimization of his CHF management with improvement in his respirations. A second thoracentesis was done on 10/15 of another liter. The pathology fortunately was negative and the fluid was found to be a transudate. The patient was actually doing quite satisfactorily by 10/15 with improved renal function. Sugars only modestly elevated on prednisone. Blood pressure and other issues were satisfactory and was hoping that he would be able to be released in the next few days. AIXA/TORIN Enma Montgomery M.D. / [id number] CC: Dagmar Sharif M.D. Roza K. Adamczyk, MD Gregory Keith Bruce, M.D. Edward Arrowsmith, M.D. Carlos Baleeiro, M.D. Claude Galphin, M.D.
--- NOTE | ~2016-10-08 | HP ---
History And Physical [place] [address] [place]. [address] NAME: SANCHEZ ANTONY : 43 STATUS : ADM IN PAT#: [id number] AGE: 70 ADM/REG DATE : 10/08/16 MR#: [id number] REPORT SERV DATE: 10/08/16 DICTATED BY: ADIA MURRAY DATE: 10/08/16 REPORT STATUS : Draft TRANSCRIBED BY: MODL DATE: 10/08/16 DATE OF ADMISSION: 10/08/2016 IDENTIFYING DATA: A 70-year-old white male whose PCP is Dr. Manpreet Aragon, [employer] consultant locally is Dr. Henning. He also goes to [place] for their Nephrology [facility]. Medical oncologist locally is Dr. Fields. Clip Baker is Dr. Qamar Vásquez. Quality Assurance Supervisor is Dr. Barr. CHIEF COMPLAINT: Shortness of breath. HISTORY OF PRESENT ILLNESS: This history of present illness is obtained by talking with the patient and mostly with his as well as with the ER physician as well as reviewing [employer] and [employer]. The patient has an extensive medical history. He had a coronary artery bypass in 2013 and according to the was mentally just a slight bit slower after that but really not much. Then about five to eight weeks ago after he started on Velcade and another medication for his kappa light chain gammopathy, the noticed that he had multiple changes, acute peripheral neuropathy in hands and feet for which he was tried on gabapentin, OxyContin, and oxycodone. This caused changes with confusion and decreased level of consciousness. Eventually, he was taken off gabapentin and he is not on OxyContin. He has also been having intermittent encephalopathy where he will have difficulty recalling simple words. He will forget his own name. He will forget his 's name. Sometimes, he will do very bizarre behaviors where he will take all of his clothes off for no good reason and other times he is completely lucid, sometimes he also not say much at all. He was here from 09/28/2016 through 09/30/2016, and during that admission was evaluated by neurologist, Dr. Roman and underwent MRI of the brain which was normal, so was MRA of the brain and neck. The patient also had spinal fluid and had VDRL that was nonreactive, HSV type 1 and 2, that were not detected, as well as TB testing on the spinal fluid that was negative, and routine cultures that were negative. No encapsulated yeast were seen. Negative for cryptococcus and no acid fast so far on the culture. He also had labs sent off to look for paraneoplastic syndrome that was not revealing. He was going to follow up with his team at [place], but he got worse. states that for about three months, he has had gradually worsening shortness of breath, but he has definitely been worse over the last week. He also has worsening hiccups. He has had a previous right pleural effusion removed. He and his described orthopnea and PND and slight ankle edema. He has Lasix that he uses occasionally p.r.n. No chest pain. He came to the emergency room, he was found have a large right pleural effusion, worsening kidney function, elevated potassium, and elevated troponin. We were asked to admit him. REVIEW OF SYSTEMS: He has been having severe insomnia for which a provider recently had tried Ambien and then they tried Halcion a couple of nights in a row, these last two nights. He has had anorexia and malaise. He has had diarrhea today. He had some pustular rash on his head that reportedly cleared with Keflex last week. He had some dermatitis on the top of the foot and he has been having a significant change in his gait where he just shuffles a little bit. History And Physical [address] [address] NAME: SANCHEZ ANTONY : 43 STATUS : ADM IN [facility]#: [id number] AGE: 70 ADM/REG DATE : 10/08/16 MR#: [id number] REPORT SERV DATE: 10/08/16 DICTATED BY: ADIA MURRAY DATE: 10/08/16 REPORT STATUS : Draft TRANSCRIBED BY: MODL DATE: 10/08/16 They deny any fever, sore throat, chest pain, abdominal pain, nausea, vomiting, diarrhea, dysuria, urinary hesitancy, headaches, or falls. PAST MEDICAL HISTORY: He claims allergies to calcium channel blockers, hoarse products, amiodarone, and Dilaudid. They deny any history of asthma, COPD, stroke, seizure, peptic ulcer, or liver disease. He has a history of rapidly progressive glomerulonephritis in 08/2014, ended up with dialysis, then in 11/2015 got a renal transplant at [facility]. He has also had psoriatic arthritis with previous therapy with Humira. He has a history of hypertension. He has paroxysmal atrial fibrillation with previous maze and nonsustained ventricular tachycardia, and the states he has an AICD. He had a coronary bypass in 2013. He has a history of chronic systolic congestive heart failure. Echocardiogram 07/17/2016: Left atrial enlargement 5.3 cm left ventricular ejection fraction 45%, decreased right ventricular function, aortic valvular sclerosis, but no aortic stenosis, fumk-an-hiyqstls mitral regurgitation and tricuspid regurgitation. He has obstructive sleep apnea for which he uses CPAP and the thinks that the machine is maybe not compensating well so I have talked to her about taking it to Dr. Chow's office for them to assess the data card. He has had diabetes mellitus for about 10 years. He has had melanomas resected and basal cells removed. He has a kappa light chain gammopathy, which he is being treated like it is a lymphoma, although the states "it is not actually a lymphoma" this was coordinated by Dr. Fields and the team from [place]. He has had Velcade and some other agents as described above. Recently, he has had low TSH and high free T4, and the states he was at [facility] last week for an outpatient thyroid uptake scan and a thyroid ultrasound. She does not know the results. HOME MEDICATIONS: Acyclovir 400 mg daily, aspirin 81 mg daily, Lipitor 10 mg daily, vitamin D 2000 units daily, Lasix 40 mg daily p.r.n. weight gain of over 3 pounds, magnesium 400 mg daily, Megace 10 mL oral suspension daily, melatonin 3 mg at bedtime, metoprolol 50 mg at bedtime, multivitamin once a day, CellCept 500 mg twice a day, Percocet 5/325 q.6 hours p.r.n. pain, prednisone 5 mg daily, Prograf 7 mg twice a day, Halcion 0.25 mg at bedtime, started in the last two nights, vqgf-ltc-txhloif calcium daily, and coenzyme Q daily. PAST SURGICAL HISTORY: He has had coronary artery bypass as well as removal of basal cell and melanoma. He had a PermCath, and he also had an AV fistula in his right arm for his previous dialysis. He has had renal biopsies. He had a left hydrocele by Dr. Fox of Urology. He has had previous renal transplant in 11/2015. He has had a cholecystectomy, appendectomy, and a right shoulder surgery. states he has had an AICD and he has had vein stripping from his legs. 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 He is . He has no tobacco or alcohol History And Physical [address] [address] NAME: SANCHEZ ANTONY : 43 STATUS : ADM IN PAT#: [id number] AGE: 70 ADM/REG DATE : 10/08/16 MR#: [id number] REPORT SERV DATE: 10/08/16 DICTATED BY: ADIA MURRAY DATE: 10/08/16 REPORT STATUS : Draft TRANSCRIBED BY: TORIN DATE: 10/08/16 intake history. FAMILY HISTORY: Mother in her late 90s with dementia. Father had a heart attack and ankylosing spondylitis. Siblings with obesity, sleep apnea, and diabetes. DIAGNOSTIC DATA: PA and lateral chest x-ray today shows a large right-sided pleural effusion. He has his pacer device in his left chest. There was some congestion and possible effusion in the left lung base as well per my interpretation. EKG done today at 10:45 reveals sinus rhythm, borderline first-degree AV block, incomplete right bundle-branch block. He has Q-waves in II, III, and AVF and poor R-wave progression per my interpretation. Sodium 137, potassium 5.4, chloride 106, CO2 is 26, BUN 54, creatinine 2.18, glucose 159. Troponin 0.10. His last TSH was 0.006 on 09/28/2016 with a free T4 of 3.3. His B- natriuretic peptide is 4174.6. White count 14.7, hemoglobin 13.8, platelets 301,000. Pro time 16.9, INR 1.4, PTT is 28.4. Urinalysis today: Blood large, protein 100, red blood cells 39, and urine drug screen is nonreactive. PHYSICAL EXAMINATION: VITAL SIGNS: Temperature is 98, pulse 80, respirations are 26, O2 saturation 98%, and blood pressure 160/80. GENERAL: Well-developed male, who appears tachypneic and chronically ill. HEENT: Head is atraumatic. I do not see any rash or outbreak. Pupils are equal, round, and reactive to light. Extraocular motions are intact. No scleral icterus noted. Ear canals and TMs unremarkable with no inflammatory changes noted externally. Normal hearing bilaterally. Nose, noninflamed externally. Septum midline. Nares patent. Mouth, moist. Good gag. No redness of the throat gums or lips. No thrush. NECK: Supple. No lymph node or thyroid enlargement. The carotids have good pulses. No bruits. He has mild jugular venous distention. LUNGS: Diminished breath sounds a half way up the right lung field, diminished in the extreme left base. Good air flow in the upper lung lipscomb. Mildly tachypneic. HEART: Regular rate and rhythm without murmur, gallop, click, or rub. ABDOMEN: Bowel sounds positive. Soft, nondistended, nontender. No masses. No organomegaly. EXTREMITIES: With trace ankle edema. He has a little bit of scaly skin on the dorsum of the right foot. No other actively inflamed skin or joints at this time. No cyanosis noted. No clubbing noted. NEUROLOGICAL: He is lethargic. He is drowsy. He awakens to verbal stimuli. He at times will answer me with normal speed and appropriate to subject. Most of the time, he just stares into space, and I have to ask him multiple times, and then he will sometimes answer me but often off subject. His motor strength is 2/5 in all four extremities. No Babinski. No clonus noted. His gait is shuffling short steps and he had two people assistance to walk. Cranial nerves 2 through 12 grossly normal. History And Physical [address] [address] NAME: SANCHEZ ANTONY : 43 STATUS : ADM IN PAT#: [id number] AGE: 70 ADM/REG DATE : 10/08/16 MR#: [id number] REPORT SERV DATE: 10/08/16 DICTATED BY: ADIA MURRAY DATE: 10/08/16 REPORT STATUS : Draft TRANSCRIBED BY: MODKristin DATE: 10/08/16 ASSESSMENT: 1. Acute shortness of breath with large right pleural effusion and a very high B- natriuretic peptide, so I am suspicious that he has acute on chronic systolic congestive heart failure. 2. Acute kidney injury in a gentleman who has chronic kidney disease with previous rapidly progressive glomerulonephritis ended up with a renal transplant in 11/2015 and now has a kappa light chain gammopathy being treated like a lymphoma. 3. Five to eight weeks of progressive encephalopathy. The differential diagnosis includes many things. I still have a concern about a MORTAR MIXER lymphoma, progressive multifocal leukoencephalopathy is a possibility , but with his recent MRI, it does not look likely. He could have a paraneoplastic syndrome despite the recent negative labs. Also I am worried about the possibility of acyclovir at this dose along with his kidney problems and CellCept that could give him adverse encephalopathy side effects as well as I am worried that he may have opportunistic MORTAR MIXER infection not yet detected. 4. Leukocytosis. 5. Recent-onset hyperthyroidism. 6. See past medical history. PLAN: I am going to admit him to the hospital on telemetry. We will get a baseline ABG on room air. I am going to ask his renal team to see him with a special attention to whether they think he should have this ongoing dose with the CellCept and Prograf and I am going to hold his acyclovir for two days then reduce the dose. I am going to ask Cardiology to see him, and would give him gentle diuresis, and ask his medical oncologist to see him because of the concern about his kappa light chain gammopathy and his immunosuppression. We are going to check an HIV. We will check blood cultures. We are going to increase his beta- sheri to b.i.d. and I am going to add methimazole 5 mg daily for his hyperthyroidism. I am going to request records from [facility] from that recent thyroid ultrasound and thyroid uptake scan. Get a new echocardiogram. His is updated at the bedside at this time. RSG/MODL Adia Murray M.D. / [id number] CC: Chet Inman M.D. Dagmar Corey M.D. Mandeep Grewal, M.D. Gregory Keith Bruce, M.D. Richard Brackett, M.D.
--- NOTE | ~2016-10-08 | CN ---
Consultation Report [facility] [address] [place]. 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 He has been treated with Velcade and dexamethasone with stabilization and mild improvement of his creatinine. Recently, he has had problems with recurrent encephalopathy. He has a transplanted kidney. There was some discussion in the chart of lymphoma, perhaps of the SUBSTATION ENGINEER, but I do not see any clear evidence of that on a recent MRI. The hospital computer, [employer], is not allowing me to open, some recent cytology from 09/28/2016. He is admitted now with dyspnea and confusion. . He has atrial fibrillation that has been well controlled, coronary artery disease has been controlled, and hypertension that has been controlled. He has a complex history of kidney disease. REVIEW OF SYSTEMS: Could not be obtained secondary to confusion. PHYSICAL EXAMINATION: Reveals a well-developed gentleman. He is in no distress. Insight and judgment appear compromised. DATA REVIEW: The computer is now allowing me to see that the cytology was negative with only mature lymphocytes. A BNP is greater than 4000. Chemistry profile shows a creatinine of 2.18. Hematology shows WBC of 14.7, hematocrit 13.8, platelets 301,000. ASSESSMENT: 1. Mesangial proliferative glomerulonephritis. Current status of this is unclear to me. I will check his records from and discuss with Dr. Fields who follows him. 2. Possible history of lymphoma, though I do not see any clear indication of this. We will discuss with colleagues. 3. Encephalopathy of unclear cause. We will follow along with you. He is off Velcade at this point. EA/MODL Consultation Report [place] [address] [place]. [address] NAME: SANCHEZ ANTONY : 43 STATUS : ADM IN PAT#: [id number] AGE: 70 ADM/REG DATE : 10/08/16 MR#: [id number] REPORT SERV DATE: 10/09/16 DICTATED BY: HONG ALBERT DATE: 10/08/16 REPORT STATUS : Draft TRANSCRIBED BY: TORIN DATE: 10/08/16 Hong Albert M.D. / [id number] CC: Dagmar Damon M.D. Michael Stipanov, M.D.
--- NOTE | ~2016-10-08 | EEG ---
Electroencephalogram [id number] [place]. [address] NAME: SANCHEZ ANTONY : 44 STATUS : ADM IN PAT#: [id number] AGE: 70 ADM/REG DATE : 10/08/16 MR#: [id number] REPORT SERV DATE: 10/12/16 DICTATED BY: MANDI ROMAN DATE: 10/12/16 REPORT STATUS : Draft TRANSCRIBED BY: MODL DATE: 10/12/16 ELECTROENCEPHALOGRAPHY REPORT. ORDERING PHYSICIAN: Nader Gilliland MD INTERPRETING PHYSICIAN: Mandi Roman M.D. AGE: 70. REASON FOR EEG: Encephalopathy, status post renal transplant, history of lymphoma. 23 surface electrodes, 10-20 international placement was used. The patient was noted to be awake and drowsy throughout the recording. Photic stimulation was performed. Video monitoring was utilized. The background activity consisted of moderate voltage, poorly organized 7 to 8 cycles per second, located in the posterior head regions. This activity did not attenuate with the eye opening maneuvers. Photic stimulation did not produce a driving response. No significant asymmetry of cerebral activity was noted during this study. No paroxysmal epileptiform features were present. 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 Heart rate of approximately 72 beats per minute. Rare PVCs were noted. No significant asymmetry of cerebral activity was noted. IMPRESSION: ABNORMAL EEG CHARACTERIZED BY PRESENCE OF DIFFUSE SLOWING OF CEREBRAL ACTIVITY. NO PAROXYSMAL OR FOCAL ABNORMALITIES WERE OBSERVED. THIS EEG SUGGESTS PRESENCE OF UNDERLYING DIFFUSE CEREBRAL DYSFUNCTION, THE NATURE OF WHICH COULD NOT BE DETERMINED ON THE BASIS OF EEG ALONE. CLINICAL CORRELATION IS RECOMMENDED. ALA/TORIN Mandi Roman MD / [id number] CC: MD Manpreet Escobedo M.D.
--- NOTE | ~2016-10-08 | CN ---
Consultation Report [facility] [address] [place]. [address] NAME: SANCHEZ ANTONY : 44 STATUS : ADM IN PAT#: [id number] AGE: 70 ADM/REG DATE : 10/08/16 MR#: [id number] REPORT SERV DATE: 10/09/16 DICTATED BY: KENROY CABRERA DATE: 10/09/16 REPORT STATUS : Draft TRANSCRIBED BY: MODL DATE: 10/09/16 CARDIOLOGY CONSULTATION DATE OF CONSULTATION: 10/08/2016 REASON FOR CONSULTATION: History of congestive heart failure, CAD and implantable defibrillator. New progressive heart failure symptoms of unclear etiology. HISTORY OF PRESENT ILLNESS: History primarily taken from the medical record as the patient in his somewhat confused. Reportedly over the last month or so, the patient has had alterations in his mental status with intermittent periods of confusion and unusual behaviors. He, thereafter, would have to have periods of appropriate thought processes. He thus far has had an extensive workup in the last part of September with no identified findings at that time. His reports that over the last three months he has had progressively worsening shortness of breath with significant worsening in the last week. His reports some intermittent lower extremity edema. He denies chest pain and she denies that he has previously reported chest pain. In the emergency department, he was found to have a large right pleural effusion, worsening renal function, and a borderline elevation of troponin. REVIEW OF SYSTEMS: Difficult to obtain, however, negative for all organ systems except per the history of present illness. ALLERGIES: CALCIUM CHANNEL TRELL, SPECIFICALLY DILTIAZEM WITH PERIPHERAL EDEMA, HORSE OR EQUINE CONTAINING PRODUCTS WITH HIVES, AMIODARONE WITH PULMONARY TOXICITY AND HALLUCINATIONS WITH HYDROMORPHONE/DILAUDID. HOME MEDICATIONS: Acyclovir 400 mg daily, aspirin 81 mg b.i.d., atorvastatin 10 mg q.h.s., vitamin D 200 units daily, furosemide 40 mg p.r.n. weight gain, magnesium oxide 400 mg daily, Megace oral suspension 40 mg/mL 10 mL daily, melatonin 3 mg q.h.s. p.r.n. insomnia, metoprolol tartrate 50 mg q.h.s., multivitamin with minerals daily, CellCept 500 mg b.i.d., oxycodone/acetaminophen 5/325 mg q.6 hours p.r.n. pain, prednisone 5 mg daily, tacrolimus (Prograf) 7 mg b.i.d., Halcion 0.25 mg p.o. q.h.s. p.r.n. insomnia, calcium supplement over- the-counter 500 mg daily, and coenzyme Q10 one tablet daily. PAST MEDICAL HISTORY: 1. Coronary artery disease, status post four-vessel coronary artery bypass grafting on 09/07/2013, BECKETT-LAD free left radial to the first diagonal, free radial to obtuse marginal, KENDALL to PDA. 2. History of paroxysmal atrial fibrillation - previously anticoagulated on Eliquis. a. History of surgical maze procedure on 09/07/2013 at the time of coronary artery bypass grafting. Consultation Report [address] [place]. [address] NAME: SANCHEZ ANTONY : 44 STATUS : ADM IN [facility]#: [id number] AGE: 70 ADM/REG DATE : 10/08/16 MR#: [id number] REPORT SERV DATE: 10/09/16 DICTATED BY: KENROY CABRERA DATE: 10/09/16 REPORT STATUS : Draft TRANSCRIBED BY: TORIN DATE: 10/09/16 3. Chronic kidney disease, status post renal transplant. 4. Gout. 5. Hypertension. 6. History of nonsustained ventricular tachycardia. 7. Chronic systolic congestive heart failure - echocardiogram on 07/17/2016 ejection fraction 45%. Mild concentric LVH. Moderate right ventricular enlargement with decreased systolic function. Biatrial enlargement. Ryzf-ad-evtgpdng mitral regurgitation and moderate tricuspid regurgitation. Aortic valve sclerosis without stenosis. 8. History of psoriatic arthritis. 9. Type 2 diabetes mellitus. 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 PHYSICAL EXAMINATION: VITALS: BP 130/90 to 161/98, pulse ranging from 69 to 85, respirations 12 and unlabored, and saturating 98% on room air. Weight 91 kg. GENERAL: Elderly male in no acute distress. HEENT: Normal. NECK: Supple, no JVD or bruit, normal carotid upstroke bilaterally, no thyromegaly. LUNGS: Clear to auscultation and percussion. No wheezes, rales or rhonchi. No use of accessory muscles. CARDIOLOGY: Regular rhythm, normal S1, S2, no thrill. There is a 2/6 early peaking systolic murmur appreciated best in the right upper sternal border. Normal PMI. ABDOMEN: Bowel sounds positive, soft, nontender, and nondistended. No masses or aortic bruits. No hepatosplenomegaly or hepatojugular reflux. EXTREMITIES: There is 1+ pitting edema at the ankles bilaterally. Normal pulses. No clubbing or cyanosis. SKIN: Warm and dry, no significant rash. NEUROLOGIC: Oriented to person and situation. DATA: Echo as described above on 07/17/2016 - ejection fraction 45%, spfr-mi-fzlabknj mitral regurgitation. Moderate tricuspid regurgitation. Moderate left ventricular enlargement with decreased systolic function. Chest x-ray from 10/08/2016, mild venous congestion diffusely. Moderate pleural effusion on the right. LABORATORY DATA: Sodium 139, potassium 5.7, chloride 110, CO2 of 20, BUN 54, creatinine 2.11, GFR 35, and glucose 137. WBC 13.4, hemoglobin 12.9, hematocrit 39.2, and platelets 230,000. Troponin 0.10 and 0.09. Beta-natriuretic peptide elevated at 4175. TSH significantly depressed at 0.012. IMPRESSION: 1. Confusion - likely multifactorial. Currently being treated for hyperthyroidism with initiation of methimazole. Consultation Report [address] [place]. [address] NAME: SANCHEZ ANTONY : 44 STATUS : ADM IN [facility]#: [id number] AGE: 70 ADM/REG DATE : 10/08/16 MR#: [id number] REPORT SERV DATE: 10/09/16 DICTATED BY: KENROY CABRERA DATE: 10/09/16 REPORT STATUS : Draft TRANSCRIBED BY: TORIN DATE: 10/09/16 2. Acute on chronic systolic congestive heart failure - mildly depressed left ventricular systolic function by recent echo. Focal echo to re-evaluate left ventricular systolic function. Clearly worsening renal function may be contributory. It is unclear as to the patient's diet and fluid intake given his level of confusion. He is currently being diuresed with recommendations per Nephrology. Consideration for thoracentesis in the future should pleural effusion not resolve. 3. Coronary artery disease - the patient denies chest pain and has no acute ischemic changes on EKG. Marginally elevated troponin which may represent a demand ischemia related event. No evidence of any type of acute plaque rupture event. Thank you for the opportunity to see the patient in consultation. We will continue to follow the patient with you. TRISTON/OTRIN Sinan Cabrera M.D. / [id number] CC: Dagmar Damon M.D.
--- NOTE | ~2016-10-08 | DS ---
Discharge Summary [facility] [address] [place]. [address] NAME: SANCHEZ ANTONY : 43 STATUS : DIS IN PAT#: [id number] AGE: 70 ADM/REG DATE : 10/08/16 MR#: [id number] REPORT SERV DATE: 10/22/16 DICTATED BY: SANDRA INMAN DATE: 10/18/16 REPORT STATUS : Draft TRANSCRIBED BY: MODL DATE: 10/18/16 ADMISSION DATE: 10/08/2016 DISCHARGE DATE: 10/18/2016 DIAGNOSES AT DISCHARGE: 1. Acute on chronic systolic congestive heart failure with echo ejection fraction this admission 35%. 2. Ischemic cardiomyopathy with history of coronary artery disease, post coronary artery bypass graft 2013. 3. Right ventricular dysfunction. 4. Recurrent transudative right pleural effusion, probably multifactorial etiology. 5. Acute kidney injury, present on admission, with creatinine peaking at 2.48 and 1.58 at discharge. 6. Chronic kidney disease, 3. 7. 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 8. Encephalopathy, multifactorial, including Prograf toxicity, possible component of hyperthyroidism and uncontrolled central and obstructive sleep apnea. 9. Central and obstructive sleep apnea. 10.Hyperthyroidism. Consider Hashitoxicosis versus toxic nodule. 11.Right calf deep venous thrombosis, occurring on the Megace therapy, resolved off the same, with low probability V/Q lung scan. 12.Paroxysmal atrial fibrillation with previous maze procedure. 13.Nonsustained ventricular tachycardia with previous AICD placement. 14.Systemic hypertension. 15.Diabetes. 16.Gait disorder. 17.Peripheral neuropathy. 18.MTHFR heterozygote. 19.Psoriatic arthritis. 20.Foot dermatitis, uncertain etiology. 21.Leukocytosis. 22.Anemia. 23.History of coronary artery bypass graft, PermCath, right arm arteriovenous fistula, hydrocele, cholecystectomy, appendectomy, and right shoulder surgery. OPERATIONS AND PROCEDURES: Thoracentesis 10/10/2016 and 10/15/2016 by Interventional Radiology. PRESENT ILLNESS: This is a 70-year-old white male who was triaged in the emergency room on 10/08/2016 at 1038 hours because of shortness of breath and altered mental status. Admission vital signs, blood pressure 167/87, temperature 97.8, pulse 78, respirations 16, and O2 saturation 98%. After evaluation in the emergency room, he was referred to the Hospitalist Service for admission. He was seen by Dr. Reuben Murray and admitted as described on admission history Discharge Summary [address] [address] NAME: SANCHEZ ANTONY : 44 STATUS : DIS IN PAT#: [id number] AGE: 70 ADM/REG DATE : 10/08/16 MR#: [id number] REPORT SERV DATE: 10/22/16 DICTATED BY: SANDRA INMAN DATE: 10/18/16 REPORT STATUS : Draft TRANSCRIBED BY: MODL DATE: 10/18/16 and physical examination. Significant history included a hospitalization here 09/28/2016 to 09/30/2016, discharged by Dr. Harper, with primary diagnosis being altered mental status of uncertain etiology despite brain imaging, lumbar puncture, and Neurology evaluation. ADDITIONAL HISTORY: Per Dr. Murray. PHYSICAL EXAMINATION: Per Dr. Murray. ADMISSION LABORATORY: Per Dr. Murray. HOSPITAL COURSE: He was admitted by Dr. Murray to [address] [place] [address] with diagnoses of: 1. Acute shortness of breath with large right pleural effusion and a very high B- natriuretic peptide, suspected acute on chronic systolic congestive heart failure. 2. Acute kidney injury in the setting of chronic kidney disease. 3. Five to eight weeks of progressive encephalopathy. 4. Leukocytosis. 5. Recent onset hyperthyroidism. 6. All occurring in the setting of the above-mentioned problems. He was admitted to [address] [place] [address]. His hospitalist care was by the undersigned on 10/09/2016 and 10/10/2016, Dr. Gilliland on 10/11/2016 and 10/12/2016 and 10/13/2016, Dr. Lindsay on 10/14/2016 and 10/15/2016 and again by the undersigned on 10/16/2016, 10/17/2016, and 10/18/2016. He was seen in consultation by Dr. Presley, Dr. Monaco, Dr. Cabrera, Dr. Mireles, and Dr. Armand Willis. His hospital course from admission through 10/15/2016 is summarized on an interim summary dictated by Dr. Lindsay. His acute on chronic congestive heart failure was treated with increasing doses of isosorbide and hydralazine in view of his acute on chronic kidney disease. In addition, his beta sheri therapy was changed from metoprolol tartrate to succinate at increasing doses. He tolerated this well and had diuresed a little over 3 kg. He had a thoracentesis on 10/10/2016 and 10/15/2016. His fluid characteristics were thought to be a transudate by Pulmonary. Routine culture was negative. An AFB culture is pending and no AFB were seen on smear. Prior to discharge, his effusion was re-occurring. A CT scan of the chest without contrast was done to evaluate for any parenchymal, pleural, or subdiaphragmatic abnormalities contributing to his recurrent pleural effusion. This demonstrated moderate right pleural effusion with compressive right lower lobe segmental and subsegmental right upper lobe atelectasis. There was severe cardiomegaly, but no other acute abnormalities. Current plan Discharge Summary [address] [place]. [address] NAME: SANCHEZ ANTONY : 44 STATUS : DIS IN PAT#: [id number] AGE: 70 ADM/REG DATE : 10/08/16 MR#: [id number] REPORT SERV DATE: 10/22/16 DICTATED BY: SANDRA INMAN DATE: 10/18/16 REPORT STATUS : Draft TRANSCRIBED BY: TORIN DATE: 10/18/16 is to follow up a chest x-ray on Saturday and consider repeat thoracenteses versus thoracic surgery evaluation for consideration of a VATS and pleurodesis. He had acute kidney injury on admission with serum creatinine of 2.18 increasing to 2.48 on 10/11/2016, subsequently declining to 1.58 at discharge. He had elevated Prograf levels that were thought to be a contributing factor. His Prograf dosing was reduced during his hospitalization and at discharge. He had been previously evaluated for an encephalopathy as described above. With reduction in his Prograf dose and accompanying levels, his encephalopathy improved. His encephalopathy also improved in conjunction with institution of BiPAP at night. By discharge, his mental status was at/or near baseline. He was followed by Dr. Chow for obstructive sleep apnea. His machine card was reviewed. His spoke with Dr. Chow who indicated that the patient had both obstructive and central sleep apnea. BiPAP was recommended. He was seen by Pulmonary who arranged BiPAP while hospitalized and the machine was procured for home use prior to discharge which will be managed by Dr. Chow. During his last hospitalization, he was found to be hyperthyroid with a TSH of 0.006. Repeat TSH here on 10/08/2016 was 0.012. A free T4 on 09/28/2016 was 3.3 and on 10/08/2016 here 1.85. He had undergone outpatient imaging at [facility] subsequent to his previous hospitalization with thyroid ultrasound showing nonspecific overall heterogeneous appearance of the thyroid gland without discrete nodule. An I-123 uptake showed reduced 24 uptake at 2.3% consistent with thyroiditis or potentially medication effect. Additional diagnostic studies related to his hyperthyroidism included thyroglobulin antibodies which were less than 0.09, however, his thyroid peroxidase antibody was elevated at 35.2. He was seen in consultation by Dr. Sandra Palomares. He thought that his hyperthyroidism might be Hashitoxicosis versus a toxic nodule. A remote possibility was related to amiodarone use, but this seem less likely in view of its remote use. Dr. Palomares recommended methimazole 10 mg daily. Higher doses of prednisone were suggested, but declined by the patient. Additional pituitary function studies were obtained including a normal LH at 6.9, FSH 6.5, mildly elevated prolactin at 17.9, and IGF-1 which is pending. He had lower extremity edema on admission, which resolved by discharge with the above- mentioned therapy. There was concern that he might have underlying DVT on home Megace therapy. In fact, he had a calf vein thrombosis identified on the right on 10/09/2016. Megace was discontinued. A repeat study on 10/12/2016 showed resolution. A V/Q lung scan on 10/12/2016 was low probability. By 10/18/2016, with his overall clinical and biochemical improvement, it was felt that he had achieved a new degree of stability that would allow a safe transition home with careful Discharge Summary [address] [facility] [place] [address] NAME: SANCHEZ ANTONY : 44 STATUS : DIS IN PAT#: [id number] AGE: 70 ADM/REG DATE : 10/08/16 MR#: [id number] REPORT SERV DATE: 10/22/16 DICTATED BY: SANDRA INMAN DATE: 10/18/16 REPORT STATUS : Draft TRANSCRIBED BY: MODL DATE: 10/18/16 outpatient followup to be described below. He will see Dr. Barr the day of discharge. He will see his primary care physician, Dr. Brad Aragon on Saturday subsequent to this discharge. He will be seen in the [facility] next Saturday. He has a followup sleep study with Dr. Chow on 10/26/2016 and an appointment on 11/11/2016. He is to see Dr. Palomares within the next two weeks, Dr. Vásquez in December, Dr. Waters in March, and he and his will decide regarding pulmonary versus thoracic followup in conjunction with Dr. Aragon. He also plans on further Dermatology evaluation. DISCHARGE MEDICATIONS: Pending outpatient followup. Acyclovir 400 mg daily, aspirin 81 mg daily, Lipitor 10 mg at bedtime, vitamin D 2000 units daily, Pepcid 20 mg daily as needed, magnesium oxide 400 mg daily, Isordil 20 mg twice daily, multivitamin 1 daily, Tapazole 10 mg daily, CellCept 500 mg twice daily, Toprol-XL 100 mg daily, tacrolimus (Prograf) 3 mg twice daily, Ambien 5 mg at night, Apresoline 50 mg every eight hours, prednisone 5 mg daily, calcium 500 mg daily, Lasix 40 mg daily for weight gain of 3 pounds, Percocet 5/325 every six hours as needed, coenzyme Q daily, and melatonin as needed. DISCHARGE LABORATORY DATA: On 10/17/2016, sodium 137, potassium 5.3, chloride 109, CO2 of 19, BUN 43, creatinine 1.58, glucose 123, calcium 8.6, phosphorus 3.2. Total protein 5.5, albumin 2.8, globulin 2.7, total bilirubin 1, alkaline phosphatase 84, ALT 22, AST 14. TSH 0.036, free T4 of 2.58. CBC; white count 12.2, hemoglobin 11.6, platelets 268,000. Last Prograf level on 10/14/2016 of 13.1. Discharge time greater than 30 minutes. DICTATED BY: Sandra Inman M.D. DD/TORIN Sandra Inman M.D. / [id number] CC: Sandra Inman M.D. Dagmar Corey M.D. Dagmar Shell M.D. Dagmar Sharif MD Discharge Summary [address] [address] NAME: SANCHEZ ANTONY HONG : 44 STATUS : DIS IN PAT#: [id number] AGE: 70 ADM/REG DATE : 10/08/16 MR#: [id number] REPORT SERV DATE: 10/22/16 DICTATED BY: SANDRA INMAN DATE: 10/18/16 REPORT STATUS : Draft TRANSCRIBED BY: MODL DATE: 10/18/16 MD Elieser Bean M.D. MD Moises Escobedo M.D., PhD. Reuben Murray M.D. Je Chow M.D., F.C.C.P. Reuben Barr M.D. Hong Presley M.D. Qamar Vásquez M.D.
--- NOTE | ~2016-10-08 | CN ---
Consultation Report [facility] [address] [place]. [address] NAME: SANCHEZ ANTONY : 43 STATUS : ADM IN PAT#: [id number] AGE: 70 ADM/REG DATE : 10/08/16 MR#: [id number] REPORT SERV DATE: 10/10/16 DICTATED BY: WILL MIRELES DATE: 10/10/16 REPORT STATUS : Draft TRANSCRIBED BY: MODL DATE: 10/10/16 CONSULTATION DATE OF CONSULTATION: Thank you for the opportunity to consult on this patient. I have seen Rosslisatori yesterday and discussed the case briefly with Dr. Inman and with the patient's . We have re- examined the patient this morning, performed an ultrasound of his chest, which is documented and outlined on the chart and discussed the care. 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 His history is quite complex, but the shortened version leading up to this presentation is a sequence of glomerular nephritis, acute kidney injury, leading to chronic kidney disease and a kidney transplant. 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 Most recently, his major problem has been with persistent encephalopathy and he has recently been in the hospital and has been worked up by Neurology. He also has obstructive and central sleep apnea, both associated with his encephalopathy and his congestive heart failure and has had more dyspnea recently. He came in because of the dyspnea. We identified a fairly good-sized right pleural effusion though not much more parenchymal disease. We discussed performing a thoracentesis and had brought the ultrasound to the bedside for bedside thoracentesis, but his had been texting with Radiology through the entire discussion, and after evaluation, had stated that he would rather have it done in Radiology so that has been changed and Radiology has been consulted. PAST MEDICAL HISTORY: As noted above, significant for the plethora of problems including chronic kidney disease, kidney transplant, chronic immunosuppression, congestive heart failure, obstructive sleep apnea, central sleep apnea. 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 No smoking, alcohol abuse, or illicit drug use. FAMILY HISTORY: Noncontributory to this acute presentation. REVIEW OF SYSTEMS: Review of 10 systems was performed with the help of the since the patient is encephalopathic and it is positive for what was noted above. PHYSICAL EXAMINATION: GENERAL: He is actually appearing quite comfortable, in no acute respiratory distress. HEENT: Normocephalic and atraumatic. NECK: Supple. No lymphadenopathy. No JVD. CHEST: Symmetric with good expansion bilaterally. LUNGS: Have good air flow, but dullness to percussion with diminished breath sounds at the Consultation Report [address] [place]. [address] NAME: SANCHEZ ANTONY : 43 STATUS : ADM IN PAT#: [id number] AGE: 70 ADM/REG DATE : 10/08/16 MR#: [id number] REPORT SERV DATE: 10/10/16 DICTATED BY: WILL MIRELES DATE: 10/10/16 REPORT STATUS : Draft TRANSCRIBED BY: TORIN DATE: 10/10/16 bottom third of the right. CARDIOVASCULAR: He has S1 and S2, which are regular in rate and rhythm. ABDOMEN: Benign. EXTREMITIES: He has no edema. No clubbing. No cyanosis. ASSESSMENT AND PLAN: Dyspnea. The patient has worsening dyspnea with a new pleural effusion. He has had pleural effusions on the right before. We looked at his multiple chest radiographs. He has an elevated hemidiaphragm as well, but the effusion is clearly larger and newer, so we did recommend proceeding with thoracentesis both for symptom relief as well as for diagnostic workup since he has multiple conditions that may be leading to the effusion. We have tried him on our BiPAP last night with a backup rate and he did very well with that, so we will try and change him to a BiPAP once he is closer to discharge planning since all he has at home is a CPAP and there is clear documentation from Dr. Chow that the downloads show inadequate improvement with CPAP alone. We appreciate the opportunity to participate in his care. Please do not hesitate to contact me if I could be of any further assistance. JENNIFER/TORIN Will Mireles M.D. / [id number] CC: Dagmar Damon M.D.
[2016-10-08 11:23] LABS: BASOPHILS 0.1 %; BASOPHILS ABSOLUTE 0.02 10/3/uL (0.0-0.16); EOSINOPHILS 0.5 %; EOSINOPHILS ABSOLUTE 0.08 10/3/uL (0.0-0.53); ER CBC TAT 0 Hrs 07 Mins; HEMATOCRIT 41.3 % (40.0-51.0); HEMOGLOBIN 13.8 g/dL (13.6-17.8); IMMATURE GRANULOCYTES 0.6 %; IMMATURE GRANULOCYTES ABSOLUTE 0.09 10/3/uL (0.0-0.11); LYMPHOCYTES 9.2 %; LYMPHOCYTES ABSOLUTE 1.35 10/3/uL (0.67-4.30); MEAN CORPUS HGB CONC 33.4 g/dL (32.0-36.0); MEAN CORPUSCULAR HEMOGLOB 28.9 pg (26.0-34.0); MEAN CORPUSCULAR VOLUME 86.6 fL (80-100); MEAN PLATELET VOLUME 12.5 fL (9.2-13.0); MONOCYTES 7.7 %; MONOCYTES ABSOLUTE 1.13 10/3/uL (0.21-1.20); NEUTROPHILS 81.9 %; NEUTROPHILS ABSOLUTE 12.07 10/3/uL (2.02-8.40); PLATELET COUNT 301 10/3/uL (150-400); RBC DISTRIBUTION WIDTH 15.3 % (12.0-16.0); RED CELL COUNT 4.77 10/6/uL (4.7-6.1); WHITE BLOOD CELLS 14.7 10/3/uL (4.5-10.5)
[2016-10-08 11:25] LABS: MANUAL DIFF NO %
[2016-10-08 11:28] LABS: INTERNATIONAL NORMAL RATI 1.4 UNITS (-); PARTIAL THROMBO TIME 28.4 SEC (22.5-37.2); PROTIME (NOT ORD) 16.9 SEC (12.0-14.5)
[2016-10-08 11:38] LABS: CALCIUM, SERUM 9.8 MG/DL (8.5-10.4); CHLORIDE, SERUM 106 MMOL/L (96-112); CO2 (CARBON DIOXIDE) 26 MMOL/L (24-34); CREATININE 2.18 MG/DL (0.70-1.30); GFR AFRICAN AMERICAN 34 ML/MIN (>=60); GFR NON AFRICAN AMERICAN 29 ML/MIN (>=60); GLUCOSE, SERUM 159 MG/DL (60-99); POTASSIUM, SERUM 5.4 MMOL/L (3.5-5.3); SODIUM, SERUM 137 MMOL/L (135-148)
[2016-10-08 11:44] LABS: BUN (BLOOD UREA NITROGEN) 54 MG/DL (6-23)
[2016-10-08 11:46] LABS: CHEST PAIN PROFILE TAT 0 Hrs 30 Mins
[2016-10-08 12:05] LABS: B NATRIURETIC PEPTIDE (BNP) 4174.6 PG/ML (< 100.0)
[~2016-10-08 13:02] MED LIST changes: +CALCIUM OTC PO; +ENDOCET1 TA3 PO; +K500 PO; +L40 PO; +LOP25 PO; +MEGACEUDL PO; +MULTIVITAMI1 PO; +PCET PO
[2016-10-08 14:18] LABS: ASCORBIC ACID (UR NOT ORDER) NEG (NEG); BILIRUBIN, URINE NEGATIVE (NEG); ER URINALYSIS TAT 0 Hrs 23 Mins; KETONE, URINE NEGATIVE (NEG); LEUKOCYTE ESTERASE(NOT OR NEG (NEG); NITRITE (URINE) NEG (NEG); WBC (NOT ORDERED) (RFLEX) 2 (0-5)
[2016-10-08 15:17] LABS: AMPHETAMINES (NOT ORD) NEG (NEG); BARBITURATES (NOT ORDERED NEG (NEG); BENZODIAZEPINES (NOT ORD) NEG (NEG); CANNABINOIDS (THC) NEG (NEG); COCAINE (NOT ORDERED) NEG (NEG); OPIATES NEG (NEG); PHENCYCLIDINE(PCP) NEG (NEG); TRICYCLICS NEG (NEG)
[2016-10-08] MEDS ORDERED: COENZYME Q10 PO (15:57)
[2016-10-08] MEDS ORDERED: MELA3 PO (16:01)
[2016-10-08] MEDS ORDERED: HALCION0.25 MG PO (16:01)
[2016-10-08 21:24] LABS: ALBUMIN 3.6 G/DL (3.5-5.0); DIRECT BILIRUBIN 0.5 MG/DL (0.0-0.4); FREE T4 1.85 NG/DL (0.76-1.46); INDIRECT BILIRUBIN(NOT ORDER) 0.7 MG/DL (0.1-0.9); TOTAL BILIRUBIN 1.2 MG/DL (0-1.2); TOTAL PROTEIN 6.1 G/DL (6.0-8.5)
[2016-10-08 21:25] LABS: TROPONIN I 0.09 NG/ML (<0.05); ULTRASENSITIVE TSH 0.012 MCIU/ML (0.358-3.740)
[2016-10-09 00:37] LABS: BE (BASE EXCESS) -3.5 MEQ/L (0 +/- 2.5); CARBOXYHEMOGLOBIN 0.5 % (0-3); HCO3 (ACTUAL BICARBONATE) 19.6 MEQ/L (23-27); HEMOBLOGIN CONTENT 13.7 G/DL (14-18); INSTRUMENT SERIAL # 35151; METHEMOGLOBIN 0.5 % (0-3); O2 CONTENT 18.2 VOL% (18-24); OPERATOR ID 17370; PCO2 (CO2 TENSION) 30 MMHG (35-45); PO2 (O2 TENSION) 77 MMHG (79-93); SAMPLE Arterial; pH 7.43 (7.37-7.43)
[2016-10-09 00:42] LABS: PROCALCITONIN 0.07 ng/mL (<0.5)
[2016-10-09 07:06] LABS: ALBUMIN 3.4 G/DL (3.5-5.0); BUN (BLOOD UREA NITROGEN) 54 MG/DL (6-23); CHLORIDE, SERUM 110 MMOL/L (96-112); CREATININE 2.11 MG/DL (0.70-1.30); GFR AFRICAN AMERICAN 35 ML/MIN (>=60); GFR NON AFRICAN AMERICAN 31 ML/MIN (>=60); GLUCOSE, SERUM 137 MG/DL (60-99); SODIUM, SERUM 139 MMOL/L (135-148)
[2016-10-09 07:08] LABS: CALCIUM, SERUM 8.7 MG/DL (8.5-10.4); CO2 (CARBON DIOXIDE) 19 MMOL/L (24-34); PHOSPHORUS, SERUM 4.8 MG/DL (2.5-4.5); POTASSIUM, SERUM 5.7 MMOL/L (3.5-5.3)
[2016-10-09 07:20] LABS: BASOPHILS 0.1 %; BASOPHILS ABSOLUTE 0.02 10/3/uL (0.0-0.16); EOSINOPHILS 0.7 %; EOSINOPHILS ABSOLUTE 0.09 10/3/uL (0.0-0.53); HEMATOCRIT 39.2 % (40.0-51.0); HEMOGLOBIN 12.9 g/dL (13.6-17.8); IMMATURE GRANULOCYTES 0.7 %; IMMATURE GRANULOCYTES ABSOLUTE 0.09 10/3/uL (0.0-0.11); LYMPHOCYTES 7.2 %; LYMPHOCYTES ABSOLUTE 0.96 10/3/uL (0.67-4.30); MEAN CORPUS HGB CONC 32.9 g/dL (32.0-36.0); MEAN CORPUSCULAR HEMOGLOB 28.2 pg (26.0-34.0); MEAN CORPUSCULAR VOLUME 85.6 fL (80-100); MEAN PLATELET VOLUME 12.6 fL (9.2-13.0); MONOCYTES 11.3 %; MONOCYTES ABSOLUTE 1.51 10/3/uL (0.21-1.20); NEUTROPHILS ABSOLUTE 10.71 10/3/uL (2.02-8.40); PLATELET COUNT 230 10/3/uL (150-400); RBC DISTRIBUTION WIDTH 15.3 % (12.0-16.0); RED CELL COUNT 4.58 10/6/uL (4.7-6.1); WHITE BLOOD CELLS 13.4 10/3/uL (4.5-10.5)
[2016-10-09 07:22] LABS: MANUAL DIFF NO %
[2016-10-09 13:12] LABS: GLYCOHEMOGLOBIN (HbA1c) 7.7 % (4.7-6.1)
[2016-10-10 05:58] LABS: BASOPHILS 0.1 %; BASOPHILS ABSOLUTE 0.01 10/3/uL (0.0-0.16); EOSINOPHILS 0.5 %; EOSINOPHILS ABSOLUTE 0.06 10/3/uL (0.0-0.53); HEMOGLOBIN 13.3 g/dL (13.6-17.8); IMMATURE GRANULOCYTES 0.7 %; IMMATURE GRANULOCYTES ABSOLUTE 0.09 10/3/uL (0.0-0.11); LYMPHOCYTES ABSOLUTE 1.44 10/3/uL (0.67-4.30); MEAN CORPUS HGB CONC 33.3 g/dL (32.0-36.0); MEAN CORPUSCULAR HEMOGLOB 28.5 pg (26.0-34.0); MEAN CORPUSCULAR VOLUME 85.8 fL (80-100); MEAN PLATELET VOLUME 12.2 fL (9.2-13.0); MONOCYTES 8.8 %; MONOCYTES ABSOLUTE 1.15 10/3/uL (0.21-1.20); NEUTROPHILS 78.9 %; NEUTROPHILS ABSOLUTE 10.34 10/3/uL (2.02-8.40); PLATELET COUNT 251 10/3/uL (150-400); RBC DISTRIBUTION WIDTH 15.6 % (12.0-16.0); RED CELL COUNT 4.66 10/6/uL (4.7-6.1); WHITE BLOOD CELLS 13.1 10/3/uL (4.5-10.5)
[2016-10-10 05:59] LABS: MANUAL DIFF NO %
[2016-10-10 06:07] LABS: ALBUMIN 3.7 G/DL (3.5-5.0); CALCIUM, SERUM 9.3 MG/DL (8.5-10.4); CHLORIDE, SERUM 107 MMOL/L (96-112); CO2 (CARBON DIOXIDE) 19 MMOL/L (24-34); GFR AFRICAN AMERICAN 30 ML/MIN (>=60); GFR NON AFRICAN AMERICAN 26 ML/MIN (>=60); GLUCOSE, SERUM 129 MG/DL (60-99); PHOSPHORUS, SERUM 4.8 MG/DL (2.5-4.5); SODIUM, SERUM 138 MMOL/L (135-148)
[2016-10-10 06:08] LABS: BUN (BLOOD UREA NITROGEN) 60 MG/DL (6-23)
[2016-10-10 13:14] LABS: TOTAL PROTEIN 6.1 G/DL (6.0-8.5)
[2016-10-10 15:54] LABS: BF TOTAL CELL CT (NOT ORD 79 /MM3; BODY FLUID RBC (NOT ORD) 770 /MM3
[2016-10-10 16:02] LABS: GLUCOSE BODY FL (NOT ORD) 134 MG/DL; LDH BODY FLUID (NOT ORD) 112 U/L; PROTEIN BODY FLUID 2.2 G/DL
[2016-10-10 16:16] LABS: BD FL LYMPH (NOT ORD) 34 %; BD FL SOURCE (NOT ORD) PLEURAL; BF BASO (NOT OF) 0 %; BF LARGE MONONUCLEAR 36 %; BODY FLUID EOS (NOT ORD) 0 %; BODY FLUID SEG (NOT ORD) 30 %
[2016-10-11 04:33] LABS: CALCIUM IONIZED 4.61 MG/DL (3.80-4.80)
[2016-10-11 04:34] LABS: HEMATOCRIT 40.3 % (40.0-51.0); HEMOGLOBIN 13.6 g/dL (13.6-17.8); MEAN CORPUS HGB CONC 33.7 g/dL (32.0-36.0); MEAN CORPUSCULAR HEMOGLOB 28.6 pg (26.0-34.0); MEAN CORPUSCULAR VOLUME 84.7 fL (80-100); MEAN PLATELET VOLUME 12.5 fL (9.2-13.0); PLATELET COUNT 257 10/3/uL (150-400); RBC DISTRIBUTION WIDTH 15.5 % (12.0-16.0); RED CELL COUNT 4.76 10/6/uL (4.7-6.1); WHITE BLOOD CELLS 15.6 10/3/uL (4.5-10.5)
[2016-10-11 04:37] LABS: MANUAL DIFF YES %
[2016-10-11 04:49] LABS: ALBUMIN 3.3 G/DL (3.5-5.0); CALCIUM, SERUM 8.6 MG/DL (8.5-10.4); CHLORIDE, SERUM 104 MMOL/L (96-112); CREATININE 2.48 MG/DL (0.70-1.30); GFR AFRICAN AMERICAN 29 ML/MIN (>=60); GFR NON AFRICAN AMERICAN 25 ML/MIN (>=60); PHOSPHORUS, SERUM 4.4 MG/DL (2.5-4.5); POTASSIUM, SERUM 4.8 MMOL/L (3.5-5.3); SODIUM, SERUM 138 MMOL/L (135-148)
[2016-10-11 04:54] LABS: BUN (BLOOD UREA NITROGEN) 64 MG/DL (6-23); CO2 (CARBON DIOXIDE) 26 MMOL/L (24-34); GLUCOSE, SERUM 207 MG/DL (60-99)
[2016-10-11 05:03] LABS: BAND NEUTROPHILS 9 %; LYMPHOCYTES 12 %; LYMPHOCYTES ABSOLUTE (CALC) 1.87 10/3/uL (0.67-4.30); MONOCYTES 8 %; MONOCYTES ABSOLUTE (CALC) 1.25 10/3/uL (0.21-1.20); NEUTROPHILS ABSOLUTE (CALC) 12.48 10/3/uL (2.02-8.40); PLATELET ESTIMATE ADQ (ADEQUATE); RBC MORPHOLOGY NORM (NORMAL); SEGMENTED NEUTROPHIL (0) 71 %; TOTAL NUCLEATED CELLS 100
[2016-10-11 17:57] LABS: THYROID PEROXIDASE AUTO AB 35.2 IU/mL (0.0-9.0)
[2016-10-11 18:47] LABS: THYROGLOBULIN AUTO ANTIBODY <0.9 IU/mL (0.0-4.0)
[2016-10-12 04:46] LABS: BASOPHILS 0.1 %; BASOPHILS ABSOLUTE 0.01 10/3/uL (0.0-0.16); EOSINOPHILS 0.3 %; EOSINOPHILS ABSOLUTE 0.05 10/3/uL (0.0-0.53); HEMATOCRIT 38.5 % (40.0-51.0); HEMOGLOBIN 13.3 g/dL (13.6-17.8); IMMATURE GRANULOCYTES 0.5 %; IMMATURE GRANULOCYTES ABSOLUTE 0.09 10/3/uL (0.0-0.11); LYMPHOCYTES 6.5 %; LYMPHOCYTES ABSOLUTE 1.07 10/3/uL (0.67-4.30); MEAN CORPUS HGB CONC 34.5 g/dL (32.0-36.0); MEAN CORPUSCULAR HEMOGLOB 28.9 pg (26.0-34.0); MEAN CORPUSCULAR VOLUME 83.7 fL (80-100); MEAN PLATELET VOLUME 12.6 fL (9.2-13.0); MONOCYTES 13.4 %; NEUTROPHILS 79.2 %; NEUTROPHILS ABSOLUTE 12.98 10/3/uL (2.02-8.40); PLATELET COUNT 250 10/3/uL (150-400); RBC DISTRIBUTION WIDTH 15.6 % (12.0-16.0); WHITE BLOOD CELLS 16.4 10/3/uL (4.5-10.5)
[2016-10-12 04:54] LABS: MANUAL DIFF NO %
[2016-10-12 07:43] LABS: THYROID STIM IMMUNOGLOBULIN <0.10 IU/L (<0.10)
[2016-10-12 08:58] LABS: SGOT(AST) 12 U/L (5-40)
[2016-10-12 09:14] LABS: A/G RATIO 1.2 (0.7-1.9); ALBUMIN 3.1 G/DL (3.5-5.0); ALKALINE PHOSPHATASE 97 U/L (45-117); BUN (BLOOD UREA NITROGEN) 62 MG/DL (6-23); CALCIUM, SERUM 8.8 MG/DL (8.5-10.4); CHLORIDE, SERUM 104 MMOL/L (96-112); CO2 (CARBON DIOXIDE) 20 MMOL/L (24-34); CREATININE 2.17 MG/DL (0.70-1.30); GFR AFRICAN AMERICAN 34 ML/MIN (>=60); GFR NON AFRICAN AMERICAN 30 ML/MIN (>=60); GLOBULIN 2.6 G/DL (2.5-4.1); GLUCOSE, SERUM 158 MG/DL (60-99); POTASSIUM, SERUM 4.5 MMOL/L (3.5-5.3); SGPT(ALT) 21 U/L (5-65); SODIUM, SERUM 135 MMOL/L (135-148); TOTAL BILIRUBIN 1.3 MG/DL (0-1.2); TOTAL PROTEIN 5.7 G/DL (6.0-8.5)
[2016-10-13 09:12] LABS: BASOPHILS 0.1 %; BASOPHILS ABSOLUTE 0.01 10/3/uL (0.0-0.16); EOSINOPHILS 0.7 %; EOSINOPHILS ABSOLUTE 0.11 10/3/uL (0.0-0.53); HEMATOCRIT 36.3 % (40.0-51.0); HEMOGLOBIN 12.2 g/dL (13.6-17.8); IMMATURE GRANULOCYTES 0.5 %; IMMATURE GRANULOCYTES ABSOLUTE 0.08 10/3/uL (0.0-0.11); LYMPHOCYTES 6.3 %; LYMPHOCYTES ABSOLUTE 0.98 10/3/uL (0.67-4.30); MEAN CORPUS HGB CONC 33.6 g/dL (32.0-36.0); MEAN CORPUSCULAR HEMOGLOB 28.2 pg (26.0-34.0); MEAN PLATELET VOLUME 12.8 fL (9.2-13.0); MONOCYTES 10.7 %; MONOCYTES ABSOLUTE 1.66 10/3/uL (0.21-1.20); NEUTROPHILS 81.7 %; NEUTROPHILS ABSOLUTE 12.66 10/3/uL (2.02-8.40); PLATELET COUNT 254 10/3/uL (150-400); RBC DISTRIBUTION WIDTH 15.5 % (12.0-16.0); RED CELL COUNT 4.32 10/6/uL (4.7-6.1); WHITE BLOOD CELLS 15.5 10/3/uL (4.5-10.5)
[2016-10-13 09:13] LABS: MANUAL DIFF NO %
[2016-10-13 09:32] LABS: CALCIUM, SERUM 8.5 MG/DL (8.5-10.4); CHLORIDE, SERUM 104 MMOL/L (96-112); CO2 (CARBON DIOXIDE) 20 MMOL/L (24-34); CREATININE 1.85 MG/DL (0.70-1.30); GFR AFRICAN AMERICAN 42 ML/MIN (>=60); GFR NON AFRICAN AMERICAN 36 ML/MIN (>=60); GLUCOSE, SERUM 160 MG/DL (60-99); PHOSPHORUS, SERUM 2.7 MG/DL (2.5-4.5); POTASSIUM, SERUM 4.6 MMOL/L (3.5-5.3); SODIUM, SERUM 131 MMOL/L (135-148)
[2016-10-13 09:33] LABS: BUN (BLOOD UREA NITROGEN) 55 MG/DL (6-23)
[2016-10-14 05:17] LABS: BASOPHILS 0.1 %; BASOPHILS ABSOLUTE 0.01 10/3/uL (0.0-0.16); EOSINOPHILS ABSOLUTE 0.16 10/3/uL (0.0-0.53); HEMATOCRIT 36.1 % (40.0-51.0); IMMATURE GRANULOCYTES 0.6 %; IMMATURE GRANULOCYTES ABSOLUTE 0.09 10/3/uL (0.0-0.11); LYMPHOCYTES 6.6 %; LYMPHOCYTES ABSOLUTE 1.02 10/3/uL (0.67-4.30); MEAN CORPUS HGB CONC 33.2 g/dL (32.0-36.0); MEAN CORPUSCULAR HEMOGLOB 28.2 pg (26.0-34.0); MEAN CORPUSCULAR VOLUME 84.9 fL (80-100); MEAN PLATELET VOLUME 12.8 fL (9.2-13.0); MONOCYTES 13.3 %; MONOCYTES ABSOLUTE 2.05 10/3/uL (0.21-1.20); NEUTROPHILS 78.4 %; NEUTROPHILS ABSOLUTE 12.05 10/3/uL (2.02-8.40); PLATELET COUNT 281 10/3/uL (150-400); RBC DISTRIBUTION WIDTH 15.7 % (12.0-16.0); RED CELL COUNT 4.25 10/6/uL (4.7-6.1); WHITE BLOOD CELLS 15.4 10/3/uL (4.5-10.5)
[2016-10-14 05:20] LABS: MANUAL DIFF NO %
[2016-10-14 05:31] LABS: CALCIUM, SERUM 8.7 MG/DL (8.5-10.4); CHLORIDE, SERUM 108 MMOL/L (96-112); CO2 (CARBON DIOXIDE) 20 MMOL/L (24-34); GFR AFRICAN AMERICAN 50 ML/MIN (>=60); GFR NON AFRICAN AMERICAN 43 ML/MIN (>=60); GLUCOSE, SERUM 174 MG/DL (60-99); PHOSPHORUS, SERUM 3.1 MG/DL (2.5-4.5); POTASSIUM, SERUM 4.8 MMOL/L (3.5-5.3); SODIUM, SERUM 133 MMOL/L (135-148)
[2016-10-14 05:34] LABS: BUN (BLOOD UREA NITROGEN) 49 MG/DL (6-23)
[2016-10-15 04:14] LABS: BASOPHILS 0.1 %; BASOPHILS ABSOLUTE 0.01 10/3/uL (0.0-0.16); EOSINOPHILS 1.2 %; EOSINOPHILS ABSOLUTE 0.18 10/3/uL (0.0-0.53); HEMATOCRIT 35.8 % (40.0-51.0); IMMATURE GRANULOCYTES 0.6 %; IMMATURE GRANULOCYTES ABSOLUTE 0.08 10/3/uL (0.0-0.11); LYMPHOCYTES ABSOLUTE 0.86 10/3/uL (0.67-4.30); MEAN CORPUS HGB CONC 33.5 g/dL (32.0-36.0); MEAN CORPUSCULAR HEMOGLOB 28.4 pg (26.0-34.0); MEAN CORPUSCULAR VOLUME 84.8 fL (80-100); MEAN PLATELET VOLUME 12.8 fL (9.2-13.0); MONOCYTES ABSOLUTE 1.87 10/3/uL (0.21-1.20); NEUTROPHILS 79.1 %; NEUTROPHILS ABSOLUTE 11.42 10/3/uL (2.02-8.40); PLATELET COUNT 302 10/3/uL (150-400); RED CELL COUNT 4.22 10/6/uL (4.7-6.1); WHITE BLOOD CELLS 14.4 10/3/uL (4.5-10.5)
[2016-10-15 04:16] LABS: MANUAL DIFF NO %
[2016-10-15 04:21] LABS: INTERNATIONAL NORMAL RATI 1.3 UNITS (-); PROTIME (NOT ORD) 15.6 SEC (12.0-14.5)
[2016-10-15 04:22] LABS: PARTIAL THROMBO TIME 30.6 SEC (22.5-37.2)
[2016-10-15 04:32] LABS: A/G RATIO 1.1 (0.7-1.9); ALBUMIN 3.2 G/DL (3.5-5.0); ALKALINE PHOSPHATASE 102 U/L (45-117); CALCIUM, SERUM 8.6 MG/DL (8.5-10.4); CHLORIDE, SERUM 109 MMOL/L (96-112); CO2 (CARBON DIOXIDE) 21 MMOL/L (24-34); CREATININE 1.54 MG/DL (0.70-1.30); GFR AFRICAN AMERICAN 52 ML/MIN (>=60); GFR NON AFRICAN AMERICAN 45 ML/MIN (>=60); GLOBULIN 2.8 G/DL (2.5-4.1); PHOSPHORUS, SERUM 2.7 MG/DL (2.5-4.5); POTASSIUM, SERUM 5.1 MMOL/L (3.5-5.3); SGOT(AST) 15 U/L (5-40); SGPT(ALT) 23 U/L (5-65); SODIUM, SERUM 137 MMOL/L (135-148); TOTAL BILIRUBIN 1.3 MG/DL (0-1.2)
[2016-10-15 04:33] LABS: BUN (BLOOD UREA NITROGEN) 44 MG/DL (6-23); GLUCOSE, SERUM 126 MG/DL (60-99)
[2016-10-16 06:11] LABS: BUN (BLOOD UREA NITROGEN) 43 MG/DL (6-23); CALCIUM, SERUM 8.4 MG/DL (8.5-10.4); CHLORIDE, SERUM 110 MMOL/L (96-112); CO2 (CARBON DIOXIDE) 20 MMOL/L (24-34); CREATININE 1.46 MG/DL (0.70-1.30); GFR AFRICAN AMERICAN 55 ML/MIN (>=60); GFR NON AFRICAN AMERICAN 48 ML/MIN (>=60); GLUCOSE, SERUM 137 MG/DL (60-99); POTASSIUM, SERUM 4.9 MMOL/L (3.5-5.3); SODIUM, SERUM 138 MMOL/L (135-148); ULTRASENSITIVE TSH 0.036 MCIU/ML (0.358-3.740)
[2016-10-17 06:19] LABS: BASOPHILS 0.2 %; BASOPHILS ABSOLUTE 0.02 10/3/uL (0.0-0.16); EOSINOPHILS 2.1 %; EOSINOPHILS ABSOLUTE 0.26 10/3/uL (0.0-0.53); HEMATOCRIT 34.6 % (40.0-51.0); HEMOGLOBIN 11.6 g/dL (13.6-17.8); IMMATURE GRANULOCYTES 0.5 %; IMMATURE GRANULOCYTES ABSOLUTE 0.06 10/3/uL (0.0-0.11); LYMPHOCYTES 6.6 %; MEAN CORPUS HGB CONC 33.5 g/dL (32.0-36.0); MEAN CORPUSCULAR HEMOGLOB 28.6 pg (26.0-34.0); MEAN CORPUSCULAR VOLUME 85.4 fL (80-100); MEAN PLATELET VOLUME 11.5 fL (9.2-13.0); MONOCYTES 12.8 %; MONOCYTES ABSOLUTE 1.56 10/3/uL (0.21-1.20); NEUTROPHILS 77.8 %; NEUTROPHILS ABSOLUTE 9.45 10/3/uL (2.02-8.40); PLATELET COUNT 268 10/3/uL (150-400); RED CELL COUNT 4.05 10/6/uL (4.7-6.1); WHITE BLOOD CELLS 12.2 10/3/uL (4.5-10.5)
[2016-10-17 06:22] LABS: MANUAL DIFF NO %
[2016-10-17 06:35] LABS: ALBUMIN 2.8 G/DL (3.5-5.0); BUN (BLOOD UREA NITROGEN) 43 MG/DL (6-23); CALCIUM, SERUM 8.6 MG/DL (8.5-10.4); CHLORIDE, SERUM 109 MMOL/L (96-112); CO2 (CARBON DIOXIDE) 19 MMOL/L (24-34); CREATININE 1.58 MG/DL (0.70-1.30); FOLLICLE STIMULATING HORMONE 6.5 MIU/ML (0.7-10.8); FREE T4 2.58 NG/DL (0.76-1.46); GFR AFRICAN AMERICAN 50 ML/MIN (>=60); GFR NON AFRICAN AMERICAN 43 ML/MIN (>=60); GLOBULIN 2.7 G/DL (2.5-4.1); GLUCOSE, SERUM 123 MG/DL (60-99); LUTEINIZING HORMONE 6.9 MIU/ML (1.2-10.6); PHOSPHORUS, SERUM 3.2 MG/DL (2.5-4.5); POTASSIUM, SERUM 5.3 MMOL/L (3.5-5.3); PROLACTIN 17.9 NG/ML (2.5-17.4); SGOT(AST) 14 U/L (5-40); SGPT(ALT) 22 U/L (5-65); SODIUM, SERUM 137 MMOL/L (135-148); TOTAL PROTEIN 5.5 G/DL (6.0-8.5); ULTRASENSITIVE TSH 0.036 MCIU/ML (0.358-3.740)
[2016-10-17 06:36] LABS: ALKALINE PHOSPHATASE 84 U/L (45-117)
[2016-10-18] MEDS ORDERED: PEPCID40 MG PO (09:50)
[2016-10-18] MEDS ORDERED: ISORDIL20 PO (09:52)
[2016-10-18] MEDS ORDERED: TOPXL50 PO (09:53)
[2016-10-18] MEDS ORDERED: AMB10 PO (09:55)
[2016-10-18] MEDS ORDERED: APRES50 PO (09:56)
[2016-12-10] MEDS ORDERED: PROTONIX PO (11:28)
[2016-12-10] MEDS ORDERED: DEMA20 PO (11:29)
[2016-12-10] MEDS ORDERED: HYDROCHLOROT25 MG PO (11:29)
[2016-12-10] MEDS ORDERED: TAPAZOLE10 MG PO (11:34)
[2016-12-10] MEDS ORDERED: METANX PO (11:35)
[2016-12-10] MEDS ORDERED: TRESIBA FL100 UNIT/1 IM (12:22)
[2016-12-10] MEDS ORDERED: TESTOST CYP100 MG/ML IM (12:24)
[2016-12-10] MEDS ORDERED: NOVOLOG SC (12:25)
== END 2016-10-18 11:25 | disposition home or self-care (01) | DRG 291 ==
LOC: ER 13:02 → 6NO 16:26
PROVIDERS: Emergency Medicine; Hospitalist; Internal Medicine; Internal Medicine Nephrology; Psychiatry & Neurology Neurology
PROC: 0W993ZX Drainage of Right Pleural Cavity, Percutaneous Approach, Diagnostic (ICD-10-PCS; principal; 2016-10-10)
PROC: 5A09357 Assistance with Respiratory Ventilation, Less than 24 Consecutive Hours, Continuous Positive Airway Pressure (ICD-10-PCS; 2016-10-11)
PROC: 0W993ZZ Drainage of Right Pleural Cavity, Percutaneous Approach (ICD-10-PCS; 2016-10-15)
DX: I13.0 Hypertensive heart and chronic kidney disease with heart failure and stage 1 through stage 4 chronic kidney disease, or unspecified chronic kidney disease (principal); I50.23 Acute on chronic systolic (congestive) heart failure; J96.00 Acute respiratory failure, unspecified whether with hypoxia or hypercapnia; N17.9 Acute kidney failure, unspecified; G92 Toxic encephalopathy; I47.2 Ventricular tachycardia; D47.2 Monoclonal gammopathy; N18.3 Chronic kidney disease, stage 3 (moderate); I82.4Z1 Acute embolism and thrombosis of unspecified deep veins of right distal lower extremity; Z94.0 Kidney transplant status; N00-N99 Diseases of the genitourinary system; I48.0 Paroxysmal atrial fibrillation; G62.9 Polyneuropathy, unspecified; E09.22 Drug or chemical induced diabetes mellitus with diabetic chronic kidney disease; I25.5 Ischemic cardiomyopathy; E05.90 Thyrotoxicosis, unspecified without thyrotoxic crisis or storm; T45.1X5A Adverse effect of antineoplastic and immunosuppressive drugs, initial encounter; I25.10 Atherosclerotic heart disease of native coronary artery without angina pectoris; E83.52 Hypercalcemia; L40.9 Psoriasis, unspecified; G47.00 Insomnia, unspecified; G47.33 Obstructive sleep apnea (adult) (pediatric); I08.1 Rheumatic disorders of both mitral and tricuspid valves; L40.50 Arthropathic psoriasis, unspecified; L30.9 Dermatitis, unspecified; R26.9 Unspecified abnormalities of gait and mobility; E87.5 Hyperkalemia; Z95.1 Presence of aortocoronary bypass graft; Z79.899 Other long term (current) drug therapy; Z95.810 Presence of automatic (implantable) cardiac defibrillator; Z88.8 Allergy status to other drugs, medicaments and biological substances; Z90.49 Acquired absence of other specified parts of digestive tract; Z79.52 Long term (current) use of systemic steroids; Z79.82 Long term (current) use of aspirin; Z85.820 Personal history of malignant melanoma of skin; Z85.828 Personal history of other malignant neoplasm of skin; Z88.7 Allergy status to serum and vaccine; Z88.5 Allergy status to narcotic agent
CPT/HCPCS: 32555; 71020; 71035; 71250; 78582; 80048; 80053; 80069; 80076; 80197; 80305; 81001; 82140; 82330; 82805; 82945; 82962; 83001; 83002; 83036; 83519; 83615; 83735; 83880; 83986; 84145; 84146; 84155; 84157; 84439; 84443; 84445; 84481; 84484; 85025; 85610; 85730; 86376; 86800; 87015; 87040; 87070; 87116; 87205; 87389; 88112; 88305; 89051; 93005; 93970; 93971; 94660; 95816; 97116-GP; 97161-GP; 99291; A9270-GY; A9540; A9567; C8924; G8978-CJ-GP; G8979-CI-GP; J0610; J2405; J7507; Q9957